=== PATIENT | male | born 1970 ===

== ENCOUNTER 2017-04-18 09:35 | Inpatient (IN) ==
[2017-04-18 10:08] LABS: ABG Base Excess -21.3 MMOL/L (-2.5-2.5); ABG HCO3 8.8 MMOL/L (20-26); ABG Oxygen Saturation 98.5 % (95-100); ABG PCO2 26.4 MM HG (35-48); ABG TCO2 7.5 MMOL/L (23-27)
[2017-04-18 10:10] LABS: ABG PH 7.071 (7.35-7.45)
[2017-04-18] MEDS ORDERED: SODIUM BICARBONATE 50 MEQ/50 ML VIAL IV STA (10:11)
[2017-04-18] MEDS ORDERED: SODIUM BICARBONATE 50 MEQ/50 ML SYRINGE IV ONE (10:14)
--- NOTE | 2017-04-18 10:16 | XRay Report ---
XR chest 1V portable Indication: SOB Comparison: Chest x-ray dated April 18, 2017 Technique: Single frontal view of the chest. Findings: Borderline heart size. Low lung volumes with bronchovascular crowding. Minimal bibasilar atelectasis. Visualized osseous and surrounding soft tissue structures appear grossly unchanged. IMPRESSION: As above. PROCEDURE INTERPRETED AT [facility] DEPARTMENT OF RADIOLOGY Final Report Signed by: Dr Kd Chang
--- NOTE | 2017-04-18 10:25 | EKG Report ---
Stationary ECG Study [facility] ER Test Date: 04/18/2017 10:23:38 AM Pat Name: CLAUDIA JADE Department: Room: Gender: M [employer]: : 1970 Requested by: Brady Carter Order Number: [id number] Reading MD: TAYO ALBERTO Intervals [place] Rate: 75 P: 73 ND: 105 QRS: 102 QRSD: 108 T: -24 QT: 426 QTc: 455 Interpretive Statements SINUS RHYTHM WITH SHORT ND INTERVAL MARKED RIGHT AXIS DEVIATION INFERIOR MYOCARDIAL INFARCTION, likely recent, WITH POSTERIOR EXTENSION Electronically Signed On 04-18-17 11:17:20 CDT by TAYO ALBERTO [id number]
--- NOTE | 2017-04-18 10:42 | Emergency Department Note ---
Joaquin Monreal Brooke, am scribing for, and in the presence of, Brady Braga MD 09:57. Omi Monreal Phillip K, MD, personally performed the services described in this documentation, ascribed by Mini Nuñez in my presence, and it is both accurate and complete . Arrival - Arrival Chief Complaint: Non-Specific ED Nursing Triage Note: pt was transfered from [facility] for abnormal labs. pt has been huffing paint for over a week Mode of Arrival: Stretcher Limitations: No Limitations Source: Patient, RN Notes Reviewed Time Seen by Provider: 04/18/17 09:44 - History of Present Illness HPI Narrative: Patient is a 46 year old male transferred from [facility] with c/o abnormal labs. His hemaglobin was 8 and the hematocrit was 24.8. His CO2 is 7.3. Patient says he has "caught a cold." He says he has a cough that started out productive but no longer is. He has been huffing paint since last Sunday. He has a history of huffing paint and has a trach that was put in five years ago. Patient has PMHx of HTN, NIDDM, anxiety, and dyslipidemia. Patient does smoke cigarettes and drink alcohol. Patient was sent here because his CPK was 565 and his MB was 18.1. His troponin was normal at [facility]. Patient denies any chest pain. Onset (ago): week(s) (1) Allergies/Adverse Reactions: Allergies Allergy/AdvReac Type Severity Reaction Status Date / Time No Known Allergies Allergy Unverified 04/18/17 09:41 Review of System - Review of System 12 point system: reviewed and no additional remarkable complaints except as stated - Review of System Constitutional: Absent: fever Respiratory: Present: cough, wheezing. Absent: respiratory distress Skin: Absent: rash Medical,Surgical,& Family Hx - Medical History Cardio: History of: Hypertension Endocrine: History of: Diabetes Mellitus (NIDDM), Dyslipidemia Respiratory: History of: Respiratory Problems (trach for huffing) - Social History Smoking Status: Smoker, status unknown Frequency of Alcohol Use: Frequently Type of Drug Use: None Exam Vital Signs: Vital Signs Temperature 98.4 F 04/18/17 09:36 Pulse Rate 90 04/18/17 09:36 Respiratory Rate 20 04/18/17 09:45 Blood Pressure 153/90 04/18/17 09:36 O2 Sat by Pulse Oximetry 98 04/18/17 09:36 - General General appearance: alert, in no apparent distress - Head Head exam: Present: atraumatic, normocephalic - Eye Eye exam: Present: normal appearance, PERRL, EOMI - ENT ENT exam: Present: normal exam - Neck Neck exam: Present: normal inspection - Chest Chest inspection: Present: normal inspection, symmetric chest wall rise - Respiratory Respiratory exam: Present: normal lung sounds bilaterally - Cardiovascular Cardiovascular exam: Present: normal rhythm, bradycardia, normal heart sounds - Abdominal Exam Abdominal exam: Present: soft, hernia (umbilical hernia that is reducable). Absent: distention, tenderness - Extremities Exam Extremities exam: Present: pedal edema (1+ bilaterallower extremity edema.) - Back Exam Back exam: Present: other (Large lipoma to the lower lumbar area.) - Neurological Exam Neurological exam: Present: alert, oriented X3 - Psychiatric Psychiatric exam: Present: normal affect, normal mood - Skin Skin exam: Present: warm, dry, intact, normal color Results - Labs Lab Results: I have reviewed the patients labs (Labs reviewed from [facility]. ABGs here showed a pH of 7.02) Labs: Laboratory Tests 04/18/17 10:02 ABG pH 7.071 L* ABG pCO2 26.4 L ABG pO2 123.0 H ABG HCO3 8.8 L ABG Total CO2 7.5 L ABG O2 Saturation 98.5 ABG Base Excess -21.3 L - EKG EKG results: interpreted by MADAY, sinus rhythm (Nonspecific ST-T changes) - Diagnostic Findings Procedure: Chest x-ray: report reviewed by me (Borderline heart size. Low lung volumes with bronchovascular crowding. Minimal bibasilar atelectasis. Visualized osseous and surrounding soft tissue structures appear grossly unchanged.) Disposition Clinical Impression: Metabolic acidosis, Toxic effect of paint, Elevated CPK, Anemia Case discussed with: patient Disposition: Still a Patient Condition: Guarded Additional Instructions: Admit to the hospitalist.
[2017-04-18] MEDS ORDERED: ONDANSETRON 4 MG/2 ML VIAL IV PRN (10:50)
[2017-04-18] MEDS ORDERED: ALBUTEROL 2.5 MG/3 ML NEB RESP TX PRN (10:50)
[2017-04-18] MEDS ORDERED: NICOTINE 21 MG/24 HR PATCH TRANSDERM PRN (10:53)
--- NOTE | 2017-04-18 11:17 | Hospitalist History & Physical ---
Assessment and Plan - Time spent with patient Time spent with patient: Greater than 30 minutes (1) Elevated creatine kinase level Status: Acute Assessment and plan: Will admit to Critical Care for close monitoring. Will repeat CPK now. Will repeat labs in a.m. Will start breathing treatments. Will start antibiotics. Current Visit: Yes History of Present Illness Chief complaint: shortness of breath History of present illness: Mr. Muñoz is a 46 year old [place] male that presented to ED as a transfer from [facility] for abnormal labs (CPK 565 and MB 18.1, troponin normal). He reports that his shortness of breath started last Sunday and has been gradually getting worse. He denies any chest pain. He verbalized chills but has not checked his temperature at home. He reports coughing up thick white sputum. He reports last time of "huffing paint" was Sunday, and he only does it occasionally. He had a trach placed 5 years ago r/t huffing paint. The trach was removed 2012. PCP: [facility]. He denies cigarette smoking. Reports occasional alcohol intake. Reports occasional huffing paint and denies any illicit drug use. LABS at [facility]: H&H 7.6 & 24.9; NA 123, K 3.9; Troponin <0.015, CK-MB 18.1; CPK 565.0; DDImer 529, BNP [address]82. After discussion with Dr Braga in the ED and Dr Clayton with Hospital Medicine, it was agreed to admit patient for further evaluation. Home medications will be reviewed and reconciliation to follow. Allergies Allergy/AdvReac Type Severity Reaction Status Date / Time No Known Allergies Allergy Unverified 04/18/17 09:41 Medical,Surgical,& Family Hx - Medical History Cardio: History of: Hypertension Endocrine: History of: Diabetes Mellitus (NIDDM), Dyslipidemia Respiratory: History of: Respiratory Problems (trach for huffing) - Social History Smoking Status: Smoker, status unknown Frequency of Alcohol Use: Frequently Type of Drug Use: None Review of systems: ROS completed and pertinent positives and negatives in HPI. Exam - Constitutional Vitals: Period Temp Pulse Resp BP Sys/Ballesteros Pulse Ox Last 24 Hr 98.4 F-98.4 F 90-90 18-20 153-153/90-90 98 General appearance: normal weight, no acute distress - Head Head exam: Present: normal inspection - Eye Eye exam: Present: EOMI Pupils: Present: BRYAN - ENT ENT exam: Present: other (noted trach scar (removed 2012)) - Neck Neck exam: Present: other (noted trach scar (removed 2012)) - Respiratory Respiratory exam: Present: clear to auscultation bilaterally - Cardiovascular Cardiovascular exam: Present: regular rate and rhythm - GI/Abdominal GI/Abdominal exam: Present: normal bowel sounds, soft. Absent: tenderness, rebound - Extremities Exam Extremities exam: Present: full ROM, edema (1+ bilateral lower leg edema) - Back Exam Back exam: Present: other (Lipoma to lower back (patient reports being present since 2002)) - Neurological Exam Neurological exam: Present: alert, oriented X3 - Psychiatric Psychiatric exam: Present: normal affect, normal mood, anxious (mildly; hx: anxiety disorders; ). Absent: agitated - Skin Skin exam: Present: normal color, warm, dry Results - Labs CBC & BMP: 04/18/17 10:37 Lab Results: I have reviewed the past 24 hour labs Labs: Labs from [facility] in the HPI and scanned in system.
[2017-04-18] MEDS ORDERED: LORazepam 2 MG/1 ML VIAL IV PRN (11:20)
[2017-04-18 11:25] LABS: CKMB % 3.5 %; Troponin I Only < 0.015 NG/ML (0.00-0.045)
[2017-04-18] MEDS ORDERED: GLUCAGON 1 MG VIAL IM PRN (11:26)
[2017-04-18] MEDS ORDERED: DEXTROSE 50% 25 GM/50 ML SYRINGE IV PRN (11:26)
[2017-04-18 11:29] LABS: Calcium 6.1 MG/DL (8.5-10.1); Osmolality,Calculated 273.1 MOS/KG (273-304); Potassium 4.3 MMOL/L (3.5-5.1)
[2017-04-18] MEDS: FAMOTIDINE 20 MG/2 ML VIAL IV SCH (11:51)
[2017-04-18] MEDS: ENOXAPARIN 30 MG/0.3 ML SYRINGE SUBCUT SCH (11:51)
[2017-04-18] MEDS: methylPREDNISolone SOD SUC 40 MG/1 ML VIAL IV SCH ×2 (11:52→21:38)
[2017-04-18] MEDS: cefTRIAXone 1,000 MG in SODIUM CHLORIDE 0.9% 100 ML IV SCH (11:53)
[2017-04-18] MEDS: ALBUTEROL/IPRATROPIUM 3 ML NEB RESP TX SCH ×2 (12:09→19:30)
[2017-04-18] MEDS: DEXTROSE 5% IV SCH ×2 (12:29→20:51)
[2017-04-18] MEDS: NACL 0.9% IV SCH ×2 (12:29→20:51)
[2017-04-18] MEDS: SODIUM ACETATE IV SCH ×2 (12:29→20:51)
[2017-04-18 12:32] LABS: Barbiturates Screen,Urine Negative (Negative); Benzodiazepines Screen,Urine Negative (Negative); Cannabinoid Screen,Urine Negative (Negative); Opiate Screen,Urine Negative (Negative); Phencyclidine Screen,Urine Negative (Negative)
[2017-04-18 12:35] LABS: Amorphous Crystals,Urine Occasional /HPF (Few); Apearance,Urine CLOUDY (Clear); Bilirubin,Urine Negative (Negative); Blood, Urine Moderate mg/dL (Negative); Glucose,Urine (UA) 50 mg/dL (Negative); Ketones,Urine Negative (Negative); Nitrite,Urine Negative (Negative); Protein,Urine 100 MG/DL; RBC,Urine 11 /HPF (0-4); Urine Color Yellow (Yellow); Urine Specific Gravity 1.006 (1.001-1.035); Urine Urobilinogen < 2.0 EU/DL (0.2-1.0)
[2017-04-18] MEDS: INSULIN LISPRO 100 UNIT/ML SUBCUT SCH ×3 (12:42→21:30)
--- NOTE | 2017-04-18 12:56 | Nephrology Consult Note ---
History of Present Illness Chief complaint: Renal failure, inhalant abuse History of present illness: Mr. Muñoz is a 46 year old male with a history of paint inhalation who says that he last did that for week ago. He presents with "cold". He was found to have a creatinine of 7 and a pH of 7 and that metabolic derangement is being corrected. He is a diabetic. He is receiving IV fluids with sodium acetate to correct the acidosis. On physical exam he has stridor and has previously had a trach. He describes the illness that resulted in the trach as "waking up in the hospital and with a trach". He says that that admission was precipitated by paint inhalation as well. He has no significant edema. he does not have wheezing. Chest x-ray demonstrates no significant volume overload. Impression renal failure probably chronic. Etiology of the renal failure certainly can be diabetic nephropathy plus minus toluene abuse #2 metabolic acidosis due to renal failure and inhalant abuse with the RTA that it causes. # 3 diabetes mellitus Plan: Correction of the acidosis as you are doing and I agree with the volume support. We have counseled him regarding the absolute necessity of stopping the inhalant abuse. Allergies Allergy/AdvReac Type Severity Reaction Status Date / Time No Known Allergies Allergy Unverified 04/18/17 09:41 Medical,Surgical,& Family Hx - Medical History Cardio: History of: Hypertension Psychological: History of: Anxiety Disorders Neurology: History of: Migraine (triggered by strong perfumes), Seizures (in 2006) Endocrine: History of: Diabetes Mellitus (NIDDM), Dyslipidemia Respiratory: History of: Intubation, Respiratory Problems (trach for huffing) - Family History Family History: Reports;: Family Diabetes (mother) - Social History Smoking Status: Smoker, status unknown Frequency of Alcohol Use: Frequently Type of Drug Use: None Review of Systems 12 point system: reviewed and no additional remarkable complaints except as stated Exam - Vital Signs Vital signs: Period Temp Pulse Resp BP Sys/Ballesteros Pulse Ox Last 24 Hr 97.6 F-98.4 F 80-90 - 134-164/68-90 97-100 - General Appearance General appearance: well-developed, well-nourished, appears started age Neck: no JVD, no thyromegaly, no carotid bruit, supple Respiratory: no kyphosis, no scoliosis Cardiology: no murmurs, no rub, no gallops, no edema, regular rate, regular rhythm, normal S1, normal S2 Gastrointestinal: normoactive bowel sounds Integumentary: no rash, warm and dry Neurologic: no focal deficit, no asterixis, alert and oriented x3, reflexes 2+ and symmetric, gait normal, strength 5/5 Musculoskeletal: no deformities, no erythema, no cyanosis, no clubbing Psychiatric: mood/affect appropriate, cooperative Results - Labs CBC & BMP: 04/18/17 10:37 Assessment and Plan - Time spent with patient Time spent with patient: Greater than 30 minutes (1) Renal failure Status: Acute Current Visit: Yes (2) Inhalant abuse Status: Acute Current Visit: Yes (3) Metabolic acidosis Status: Acute Assessment and plan: Continue Na acetate Current Visit: Yes
[2017-04-18] MEDS: AZITHROMYCIN INJ 250 MG in SODIUM CHLORIDE 0.9% 250 ML IV SCH (13:54)
[2017-04-18 17:13] LABS: Calcium 6.4 MG/DL (8.5-10.1); Osmolality,Calculated 279.7 MOS/KG (273-304)
[2017-04-18 23:47] LABS: Osmolality,Calculated 287.2 MOS/KG (273-304); Potassium 3.8 MMOL/L (3.5-5.1)
[2017-04-19] MEDS: ALBUTEROL/IPRATROPIUM 3 ML NEB RESP TX SCH ×4 (00:53→19:27)
[2017-04-19] MEDS: INSULIN LISPRO 100 UNIT/ML SUBCUT SCH ×6 (01:45→21:45)
[2017-04-19] MEDS: DEXTROSE 5% IV SCH ×3 (04:26→18:38)
[2017-04-19] MEDS: NACL 0.9% IV SCH ×3 (04:26→18:38)
[2017-04-19] MEDS: SODIUM ACETATE IV SCH ×3 (04:26→18:38)
[2017-04-19] MEDS: ACETAMINOPHEN 325 MG TABLET PO PRN ×2 (04:48→09:45)
[2017-04-19] MEDS: methylPREDNISolone SOD SUC 40 MG/1 ML VIAL IV SCH ×3 (04:48→21:09)
[2017-04-19 05:34] LABS: Hematocrit 21.1 VOL% (42.0-52.0); Hemoglobin 7.4 GM/DL (14.0-18.0); Immature Granulocytes % 1.6 %; Lymphocytes # 0.4 10*3/uL (1.4-4.0); Lymphocytes % 6.2 % (21.2-54.2); Mean Corpuscular HGB Conc 35.1 GM/DL (32-36); Mean Corpuscular Hemoglobin 30 PG (27-34); Mean Corpuscular Volume 84.4 FL (87-102); Mean Platelet Volume 10.3 FL (9.6-12.0); Monocytes # 0.2 10*3/uL (0.11-0.8); Monocytes % 3.3 % (1.7-12.7); NRBC # 0.04 10*3/uL; Neutrophils # 5.6 10*3/uL (1.4-7.4); Neutrophils % 88.9 % (38.7-73.9); Platelet Count 132 T/CUMM (130-400); Red Cell Distribution Width 15.2 % (9.3-17.3); White Blood Count 6.3 T/CUMM (4-12)
[2017-04-19 06:08] LABS: Calcium 6.2 MG/DL (8.5-10.1); Osmolality,Calculated 285.1 MOS/KG (273-304); Potassium 3.7 MMOL/L (3.5-5.1)
[2017-04-19 06:12] LABS: Albumin 2.4 G/DL (3.4-5.0); Bilirubin,Total 1.1 MG/DL (0.2-1.0); Calcium 6.1 MG/DL (8.5-10.1); Osmolality,Calculated 285.1 MOS/KG (273-304); Potassium 3.7 MMOL/L (3.5-5.1); Total Protein 4.9 G/DL (6.4-8.3)
--- NOTE | 2017-04-19 07:37 | EKG Report ---
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
--- NOTE | 2017-04-19 08:34 | Nephrology Progress Note ---
Nephrology - PN: Subj Interval history: An metabolic acidosis related to inhalant abuse. He is conversant doing fairly well. He is not short of breath but does have some stridor related to his previous tracheostomy. Chest is clear he has no peripheral edema. His creatinine is improved now down to 6.8 but his bicarb is 11 his hematocrit is noted to be 21%. Will continue to correct his metabolic acidosis and will increase his sodium acetate. I think he will also benefit from transfusion. Exam (PN)-Nephrology - Vital Signs Vital signs: Period Temp Pulse Resp BP Sys/Ballesteros Pulse Ox Last 24 Hr 97.6 F-98.8 F 72-91 11-27 134-174/68-90 96-100 - Lab 04/19/17 04:41 04/19/17 04:41 Most recent lab results ABG pH 7.071 (7.35-7.45) L* 04/18/17 10:02 ABG pCO2 26.4 MM HG (35-48) L 04/18/17 10:02 ABG pO2 123.0 MM HG (80-95) H 04/18/17 10:02 ABG HCO3 8.8 MMOL/L (20-26) L 04/18/17 10:02 ABG O2 Saturation 98.5 % (95-100) 04/18/17 10:02 Calcium 6.1 MG/DL (8.5-10.1) L 04/19/17 04:41 Magnesium 2.0 MG/DL (1.8-2.4) 04/18/17 23:02 Assessment and Plan (1) Renal failure Status: Acute Current Visit: Yes (2) Inhalant abuse Status: Acute Current Visit: Yes (3) Metabolic acidosis Status: Acute Assessment and plan: Continue Na acetate Current Visit: Yes
[2017-04-19] MEDS ORDERED: SODIUM CHLORIDE 0.9% 250 ML IV PRN (08:40)
--- NOTE | 2017-04-19 09:04 | Hospitalist Progress Note ---
Assessment and Plan (1) Metabolic acidosis Status: Acute Assessment and plan: 1)metabolic acidosis with Suzie on CKD due to inhalant use- correcting with IV bicarb infusion, continue. continue serial BMP. Creatinine down a little bit, follow. Urine is clear. 2)DM 3)inhalant abuse- he has no plans to stop, because he says he likes the buzz. 4)elevated CPK- repeat this morning. 5)hyponatremia- correcting with IVF 6)anemia- transfusing 2U PRBC Current Visit: Yes (2) Toxic effect of paint Status: Acute Current Visit: Yes (3) Elevated creatine kinase level Status: Acute Current Visit: Yes (4) Anemia Status: Acute Current Visit: Yes (5) Renal failure Status: Acute Current Visit: Yes (6) Inhalant abuse Status: Acute Current Visit: Yes Hospitalist: Subjective Interval history: Mr Muñoz is doing well this morning. He denies pain and says he is hungry for eggs and grits. No nausea. NO diarrhea. He is not short of breath. His H&H is down with hydration and a transfusion has been ordered. His chemistries are slowly improving with bicarb infusion. Exam - Constitutional Vitals: Period Temp Pulse Resp BP Sys/Ballesteros Pulse Ox Last 24 Hr 97.6 F-98.8 F 72-91 11-27 134-174/68-90 96-100 General appearance: no acute distress, morbidly obese - Head Head exam: Present: normocephalic, atraumatic - Eye Eye exam: Present: EOMI. Absent: scleral icterus Pupils: Present: BRYAN - Respiratory Respiratory exam: Present: clear to auscultation bilaterally, stridor (chronic) . Absent: rales, rhonchi, wheezes - Cardiovascular Cardiovascular exam: Present: regular rate and rhythm - GI/Abdominal GI/Abdominal exam: Present: normal bowel sounds, soft. Absent: tenderness - Extremities Exam Extremities exam: Present: edema (1-2+ dependent) - Neurological Exam Neurological exam: Present: alert, oriented X3 - Skin Skin exam: Present: warm, dry Results - Labs CBC & BMP: 04/19/17 04:41 04/19/17 04:41 Lab Results: I have reviewed the past 24 hour labs
[2017-04-19] MEDS: CALCIUM (CARBONATE)/VITAMIN D 600 MG-400 UNIT TABLET PO SCH ×2 (09:44→21:09)
[2017-04-19] MEDS: ASPIRIN EC 81 MG TABLET PO SCH (09:44)
[2017-04-19] MEDS: CARVEDILOL 3.125 MG TABLET PO SCH ×2 (09:45→21:09)
--- NOTE | 2017-04-19 09:58 | Physician Query Form ---
CLICK EDIT DOCUMENT TO SELECT QUERY ANSWER --> OK --> SIGN Vandana Ruff RN, CCDS Certified Clinical Dip Painter W) [phone] (f) [phone] [email or web address]: Make your selection(s) from the choices in EACH section by typing an "x" and enter comments in the comment section. Please use your independent medical judgment in providing your response. This request does not imply that any particular answer is desired or expected. CLINICAL INDICATORS: (Providers should not edit this section) The medical record indicates that the patient was admitted with Metabolic Acidosis, history inhalation of patient, History of trach from inhalation, now with acute renal failure and a renal consultation was placed. ( Creatinine of 7.30# and GFR of 10#) Based on the above, could you clarify the appropriate diagnosis, if significant , that supports the above abnormalities and additional evaluation, monitoring, and/or treatment rendered: ( ) Acute renal failure with necrosis (e.g., cortical, medullary, tubular) ( ) Acute renal failure only ( ) Other, please specify: (x ) Clinically unable to determine COMMENTS:Acute on chronic renal failure PLEASE ALSO DOCUMENT RESPONSE IN PROGRESS NOTES AND/OR DISCHARGE SUMMARY Use of terms such as suspected, likely, or probable (associated with a specific diagnosis that is being evaluated, monitored, or treated as if it exists) are acceptable and can be restated in the discharge summary if not ruled out. MTDD
[2017-04-19 11:26] LABS: Osmolality,Calculated 287.2 MOS/KG (273-304); Potassium 3.8 MMOL/L (3.5-5.1)
[2017-04-19] MEDS: FAMOTIDINE 20 MG/2 ML VIAL IV SCH (11:38)
[2017-04-19] MEDS: cefTRIAXone 1,000 MG in SODIUM CHLORIDE 0.9% 100 ML IV SCH (11:40)
[2017-04-19] MEDS: ENOXAPARIN 30 MG/0.3 ML SYRINGE SUBCUT SCH (11:44)
[2017-04-19] MEDS: AZITHROMYCIN INJ 250 MG in SODIUM CHLORIDE 0.9% 250 ML IV SCH (12:23)
[2017-04-19] MEDS: MORPHINE 2 MG/1 ML SYRINGE IV PRN (13:46)
[2017-04-19 17:31] LABS: Calcium 6.1 MG/DL (8.5-10.1)
[2017-04-19] MEDS: hydrALAZINE 20 MG/1 ML VIAL IV PRN (17:45)
[2017-04-19 19:08] LABS: Hematocrit 26.3 VOL% (42.0-52.0); Hemoglobin 9.3 GM/DL (14.0-18.0)
[2017-04-19] MEDS ORDERED: CARVEDILOL 3.125 MG TABLET PO SCH (21:00)
[2017-04-19] MEDS ORDERED: CALCIUM (CARBONATE)/VITAMIN D 600 MG-400 UNIT TABLET PO SCH (21:00)
[2017-04-20] MEDS: NACL 0.9% IV SCH ×6 (00:27→16:11)
[2017-04-20] MEDS: DEXTROSE 5% IV SCH ×6 (00:27→16:11)
[2017-04-20] MEDS: SODIUM ACETATE IV SCH ×6 (00:27→16:11)
[2017-04-20] MEDS: INSULIN LISPRO 100 UNIT/ML SUBCUT SCH ×6 (00:28→21:00)
[2017-04-20] MEDS: ALBUTEROL/IPRATROPIUM 3 ML NEB RESP TX SCH ×4 (00:48→19:53)
[2017-04-20] MEDS: hydrALAZINE 20 MG/1 ML VIAL IV PRN ×2 (01:11→12:28)
[2017-04-20] MEDS: MORPHINE 2 MG/1 ML SYRINGE IV PRN (02:39)
[2017-04-20 04:06] LABS: Hematocrit 25.3 VOL% (42.0-52.0); Immature Granulocytes % 1.4 %; Immature Granulocytes Absolute 0.11 #; Lymphocytes # 0.3 10*3/uL (1.4-4.0); Lymphocytes % 3.8 % (21.2-54.2); Mean Corpuscular HGB Conc 35.6 GM/DL (32-36); Mean Corpuscular Hemoglobin 30 PG (27-34); Mean Corpuscular Volume 83.5 FL (87-102); Mean Platelet Volume 10.1 FL (9.6-12.0); Monocytes # 0.3 10*3/uL (0.11-0.8); Monocytes % 3.9 % (1.7-12.7); NRBC # 0.02 10*3/uL; Neutrophils # 7.2 10*3/uL (1.4-7.4); Neutrophils % 90.9 % (38.7-73.9); Platelet Count 156 T/CUMM (130-400); Red Blood Count 3.03 MC/CUMM (3.8-5.5); Red Cell Distribution Width 15.9 % (9.3-17.3); White Blood Count 7.9 T/CUMM (4-12)
[2017-04-20 04:37] LABS: Calcium 6.1 MG/DL (8.5-10.1); Osmolality,Calculated 299.3 MOS/KG (273-304); Potassium 3.6 MMOL/L (3.5-5.1)
[2017-04-20] MEDS: methylPREDNISolone SOD SUC 40 MG/1 ML VIAL IV SCH ×3 (04:43→23:09)
[2017-04-20 05:31] LABS: Hypochromasia 1+; Lymphocytes 4 % (20-55); Segmented Neutrophils 94 % (50-85); Total Cells Counted 100
[2017-04-20 05:32] LABS: Microcytosis 1+; Platelet Estimate Adequate
[2017-04-20] MEDS: CALCIUM (CARBONATE)/VITAMIN D 600 MG-400 UNIT TABLET PO SCH ×2 (08:46→20:59)
[2017-04-20] MEDS: ASPIRIN EC 81 MG TABLET PO SCH (08:47)
[2017-04-20] MEDS: CARVEDILOL 3.125 MG TABLET PO SCH (08:47)
[2017-04-20] MEDS ORDERED: ASPIRIN EC 81 MG TABLET PO SCH (09:00)
--- NOTE | 2017-04-20 09:35 | XRay Report ---
XR chest 1V portable Indication: Shortness of breath Comparison: 18 April 2017 Findings: The heart and mediastinum are normal in size and configuration. The pulmonary vascularity is normal in caliber. There is hazy increased right lower lung density. No other lung infiltrates, effusions, pneumothorax or other abnormality is demonstrated. Impression: Hazy increased right lower lung density, could indicate pneumonia or atelectasis. PROCEDURE INTERPRETED AT [facility] DEPARTMENT OF RADIOLOGY Final Report Signed by: Dr. Adrián Buitrago
[2017-04-20] MEDS ORDERED: SODIUM BICARBONATE 50 MEQ/50 ML VIAL IV ONE (09:59)
[2017-04-20] MEDS ORDERED: FUROSEMIDE 40 MG/4 ML VIAL IV ONE (10:00)
--- NOTE | 2017-04-20 10:02 | Nephrology Progress Note ---
Nephrology - PN: Subj Interval history: Mr. bermeo is seen in follow-up of his acute superimposed on chronic renal failure with a history of an Delilah abuse and diabetes mellitus. He is without complaint and tolerated 2 units of packed red cells well yesterday and now has a hematocrit of 25. His measured bicarbonate is 14 this morning and creatinine is down to 6.6. He is not short of breath and his chest is clear he has no peripheral edema but his chest x-ray is beginning to look a little wet and because of that we will decrease his IV fluid rate from 125/h 75 cc. We will give 1 amp of sodium bicarb IV and we will begin maintenance sodium bicarb by mouth 1300 mg 3 times daily. Certainly he will have some significant chronic renal failure but he is improved and in no distress. I agree that he is ready to be managed out of the intensive care unit. Exam (PN)-Nephrology - Vital Signs Vital signs: Period Temp Pulse Resp BP Sys/Ballesteros Pulse Ox Last 24 Hr 97.4 F-99.1 F 71-99 10-25 137-204/72-121 94-100 - Lab 04/20/17 03:59 04/20/17 03:59 Most recent lab results ABG pH 7.071 (7.35-7.45) L* 04/18/17 10:02 ABG pCO2 26.4 MM HG (35-48) L 04/18/17 10:02 ABG pO2 123.0 MM HG (80-95) H 04/18/17 10:02 ABG HCO3 8.8 MMOL/L (20-26) L 04/18/17 10:02 ABG O2 Saturation 98.5 % (95-100) 04/18/17 10:02 Calcium 6.1 MG/DL (8.5-10.1) L 04/20/17 03:59 Magnesium 2.0 MG/DL (1.8-2.4) 04/18/17 23:02 Assessment and Plan (1) Renal failure Status: Acute Current Visit: Yes (2) Inhalant abuse Status: Acute Current Visit: Yes (3) Metabolic acidosis Status: Acute Assessment and plan: Continue Na acetate Current Visit: Yes
[2017-04-20] MEDS ORDERED: SODIUM ACETATE IV ONE (10:30)
[2017-04-20] MEDS ORDERED: SODIUM CHLORIDE 0.9% IV ONE (10:30)
[2017-04-20] MEDS: cefTRIAXone 1,000 MG in SODIUM CHLORIDE 0.9% 100 ML IV SCH (11:35)
[2017-04-20] MEDS ORDERED: PNEUMOCOCCAL VACCINE (13 VALENT) 0.5 ML SYRINGE IM ONE (11:36)
[2017-04-20] MEDS: ENOXAPARIN 30 MG/0.3 ML SYRINGE SUBCUT SCH (11:37)
[2017-04-20] MEDS: FAMOTIDINE 20 MG/2 ML VIAL IV SCH (11:37)
[2017-04-20] MEDS: AZITHROMYCIN INJ 250 MG in SODIUM CHLORIDE 0.9% 250 ML IV SCH (11:41)
[2017-04-20] MEDS: hydrALAZINE 25 MG TABLET PO SCH ×3 (13:26→20:59)
--- NOTE | 2017-04-20 13:33 | Hospitalist Progress Note ---
Assessment and Plan (1) Metabolic acidosis Status: Acute Assessment and plan: 1)metabolic acidosis with KIESHA on CKD due to inhalant use- correcting with IV bicarb infusion, continue. continue serial BMP. Creatinine down a little bit, follow. Urine is clear. Will need continued bicarb. Dr Zhang following. Creatinine is slow to come down, UOP is increasing. 2)DM 3)inhalant abuse- he has no plans to stop, because he says he likes the buzz. 4)elevated CPK- repeat. 5)hyponatremia- corrected 6)anemia- transfused 2U PRBC- with appropriate increase in H&H. Current Visit: Yes (2) Toxic effect of paint Status: Acute Current Visit: Yes (3) Elevated creatine kinase level Status: Acute Current Visit: Yes (4) Anemia Status: Acute Current Visit: Yes (5) Renal failure Status: Acute Current Visit: Yes (6) Inhalant abuse Status: Acute Current Visit: Yes Hospitalist: Subjective Interval history: Mr Muñoz is feeling good today. He is eating without nausea and denies shortness of breath or pain. He has been stable hemodynamically but is hypertension. Exam - Constitutional Vitals: Period Temp Pulse Resp BP Sys/Ballesteros Pulse Ox Last 24 Hr 97.4 F-99.1 F 71-102 10-25 137-204/66-121 95-100 General appearance: no acute distress, morbidly obese - Head Head exam: Present: normocephalic, atraumatic - Eye Eye exam: Present: EOMI. Absent: scleral icterus - Respiratory Respiratory exam: Present: clear to auscultation bilaterally - Cardiovascular Cardiovascular exam: Present: regular rate and rhythm - GI/Abdominal GI/Abdominal exam: Present: normal bowel sounds, soft. Absent: tenderness - Extremities Exam Extremities exam: Present: edema (2+) - Neurological Exam Neurological exam: Present: alert, oriented X3 - Skin Skin exam: Present: warm, dry Results - Labs CBC & BMP: 04/20/17 03:59 04/20/17 03:59 Lab Results: I have reviewed the past 24 hour labs
[2017-04-20] MEDS: CARVEDILOL 25 MG TABLET PO SCH (16:11)
[2017-04-20] MEDS: SODIUM BICARBONATE 650 MG TABLET PO SCH ×2 (16:11→20:59)
[2017-04-20] MEDS ORDERED: CARVEDILOL 6.25 MG TABLET PO SCH (17:00)
[2017-04-21] MEDS: INSULIN LISPRO 100 UNIT/ML SUBCUT SCH ×6 (00:12→22:13)
[2017-04-21] MEDS: ALBUTEROL/IPRATROPIUM 3 ML NEB RESP TX SCH ×4 (00:50→20:47)
[2017-04-21] MEDS: DEXTROSE 5% IV SCH ×2 (02:26→17:19)
[2017-04-21] MEDS: SODIUM ACETATE IV SCH ×2 (02:26→17:19)
[2017-04-21] MEDS: NACL 0.9% IV SCH ×2 (02:26→17:19)
[2017-04-21 02:53] LABS: Calcium 6.2 MG/DL (8.5-10.1); Osmolality,Calculated 310.7 MOS/KG (273-304); Potassium 3.6 MMOL/L (3.5-5.1)
[2017-04-21] MEDS: SODIUM BICARBONATE 650 MG TABLET PO SCH ×3 (08:32→22:15)
[2017-04-21] MEDS: FAMOTIDINE 20 MG/2 ML VIAL IV SCH ×2 (08:32→12:19)
[2017-04-21] MEDS: CALCIUM (CARBONATE)/VITAMIN D 600 MG-400 UNIT TABLET PO SCH ×2 (08:33→22:15)
[2017-04-21] MEDS: CARVEDILOL 25 MG TABLET PO SCH ×2 (08:33→17:23)
[2017-04-21] MEDS: ASPIRIN EC 81 MG TABLET PO SCH (08:33)
[2017-04-21] MEDS: hydrALAZINE 25 MG TABLET PO SCH ×4 (08:38→22:15)
--- NOTE | 2017-04-21 09:14 | Hospitalist Progress Note ---
Assessment and Plan - Time spent with patient Time spent with patient: Less than 30 minutes (1) Acute kidney injury superimposed on chronic kidney disease Status: Acute Assessment and plan: Creatinine is 6.7 today. Continuing IV fluids and awaiting further recommendations from nephrology. Current Visit: Yes (2) Anemia Status: Chronic Assessment and plan: He is status post transfusion of 2 packed red blood cells and is otherwise asymptomatic at this time. Continue to follow. Current Visit: Yes (3) Inhalant abuse Status: Chronic Assessment and plan: Patient has history of inhalant abuse and states that he has no plans to stop. Continue discussions in regards to cessation. Current Visit: Yes (4) Diabetes mellitus Status: Acute Assessment and plan: Blood sugar fairly well-controlled at this time. Continue current medical regimen. Current Visit: Yes Hospitalist: Subjective Interval history: Chart has been reviewed and patient examined. 46-year-old male who had metabolic acidosis with acute kidney injury on chronic kidney disease secondary to inhalant use. He is now having no complaints stating he is tolerating his diet. He has minimal shortness of breath. He has been followed by nephrology. Exam - Constitutional Vitals: Period Temp Pulse Resp BP Sys/Balelsteros Pulse Ox Last 24 Hr 97.9 F-98.5 F 78-102 12-22 132-190/65-93 93-100 General appearance: no acute distress - Head Head exam: Present: normocephalic, atraumatic - Eye Eye exam: Present: EOMI Pupils: Present: BRYAN - ENT ENT exam: Present: normal exam - Neck Neck exam: Present: normal inspection. Absent: lymphadenopathy, meningismus, tenderness - Respiratory Respiratory exam: Present: clear to auscultation bilaterally - Cardiovascular Cardiovascular exam: Present: regular rate and rhythm. Absent: systolic murmur , tachycardia - GI/Abdominal GI/Abdominal exam: Present: normal bowel sounds, soft. Absent: mass, tenderness , rebound - Extremities Exam Extremities exam: Absent: calf tenderness, edema - Back Exam Back exam: Present: normal inspection - Neurological Exam Neurological exam: Present: alert, oriented X3, CN II-XII intact. Absent: motor sensory deficit - Psychiatric Psychiatric exam: Present: normal affect, normal mood. Absent: agitated, anxious - Skin Skin exam: Present: warm, dry. Absent: rash Results - Labs CBC & BMP: 04/20/17 03:59 04/21/17 01:51 Lab Results: I have reviewed the past 24 hour labs
[2017-04-21] MEDS: methylPREDNISolone SOD SUC 40 MG/1 ML VIAL IV SCH ×2 (10:02→22:18)
[2017-04-21] MEDS: ENOXAPARIN 30 MG/0.3 ML SYRINGE SUBCUT SCH (11:47)
--- NOTE | 2017-04-21 13:20 | Nephrology Progress Note ---
Nephrology - PN: Subj Interval history: Patient is resting comfortably. No acute changes. Serum creatinine is noted to be 6.7. Serum potassium is stable at 3.6. Repeat BMP in a.m. Exam (PN)-Nephrology - Vital Signs Vital signs: Period Temp Pulse Resp BP Sys/Ballesteros Pulse Ox Last 24 Hr 97.9 F-98.5 F 78-91 16-22 132-155/65-86 93-100 - General Appearance General appearance: well-developed, well-nourished EENT: ATNC Neck: supple Respiratory: clear Cardiology: regular rate, regular rhythm Gastrointestinal: normoactive bowel sounds Neurologic: alert and oriented x3 Musculoskeletal: no clubbing Psychiatric: mood/affect appropriate - Lab 04/20/17 03:59 04/21/17 01:51 Most recent lab results ABG pH 7.071 (7.35-7.45) L* 04/18/17 10:02 ABG pCO2 26.4 MM HG (35-48) L 04/18/17 10:02 ABG pO2 123.0 MM HG (80-95) H 04/18/17 10:02 ABG HCO3 8.8 MMOL/L (20-26) L 04/18/17 10:02 ABG O2 Saturation 98.5 % (95-100) 04/18/17 10:02 Calcium 6.2 MG/DL (8.5-10.1) L 04/21/17 01:51 Magnesium 2.0 MG/DL (1.8-2.4) 04/18/17 23:02 Assessment and Plan (1) Metabolic acidosis Status: Chronic Current Visit: Yes (2) Renal failure Status: Acute Assessment and plan: BMP in a.m. Watching for renal recovery. Current Visit: Yes Qualifiers: Chronic kidney disease stage: stage 5, not on chronic dialysis (3) Diabetes mellitus Status: Chronic Current Visit: Yes Qualifiers: Diabetes mellitus type: type 2 (4) Acute kidney injury superimposed on chronic kidney disease Status: Acute Assessment and plan: BMP in a.m. Avoid nephrotoxic agents. No NSAID medications. Current Visit: Yes
[2017-04-21] MEDS: AZITHROMYCIN INJ 250 MG in SODIUM CHLORIDE 0.9% 250 ML IV SCH (14:26)
[2017-04-21] MEDS: LACTULOSE 20 GM/30 ML UDCUP PO PRN (17:22)
[2017-04-22] MEDS: ALBUTEROL/IPRATROPIUM 3 ML NEB RESP TX SCH ×4 (00:50→20:23)
[2017-04-22] MEDS: INSULIN LISPRO 100 UNIT/ML SUBCUT SCH ×6 (01:38→20:41)
[2017-04-22] MEDS: NACL 0.9% IV SCH ×3 (04:59→20:48)
[2017-04-22] MEDS: DEXTROSE 5% IV SCH ×3 (04:59→20:48)
[2017-04-22] MEDS: SODIUM ACETATE IV SCH ×3 (04:59→20:48)
[2017-04-22 07:03] LABS: Calcium 6.6 MG/DL (8.5-10.1); Magnesium 1.8 MG/DL (1.8-2.4); Osmolality,Calculated 312.7 MOS/KG (273-304); Potassium 3.7 MMOL/L (3.5-5.1)
--- NOTE | 2017-04-22 07:17 | Hospitalist Progress Note ---
Assessment and Plan - Time spent with patient Time spent with patient: Less than 30 minutes (1) Acute kidney injury superimposed on chronic kidney disease Status: Acute Assessment and plan: Creatinine is 6.7 today. Continuing IV fluids and awaiting further recommendations from nephrology. 04/22/17: Creatinine slightly improved at 6.6 today. Continuing IV fluids and awaiting further decisions from nephrology. Current Visit: Yes (2) Anemia Status: Chronic Assessment and plan: He is status post transfusion of 2 packed red blood cells and is otherwise asymptomatic at this time. Continue to follow. 04/22/17: H&H remained stable at this time. Continue to follow. Current Visit: Yes (3) Inhalant abuse Status: Chronic Assessment and plan: Patient has history of inhalant abuse and states that he has no plans to stop. Continue discussions in regards to cessation. Current Visit: Yes (4) Diabetes mellitus Status: Chronic Assessment and plan: Blood sugar fairly well-controlled at this time. Continue current medical regimen. 04/22/17: Blood sugars continue to be under fair control. Continue current regimen and will taper steroids. Current Visit: Yes Qualifiers: Diabetes mellitus type: type 2 (5) UTI (urinary tract infection) Status: Acute Assessment and plan: Currently receiving IV Ancef for staph aureus UTI. Current Visit: Yes Hospitalist: Subjective Interval history: Patient in bed reading the newspaper and having no new complaints. He denies any chest pain, shortness breath, nausea, vomiting. He is tolerating his diet well. Exam - Constitutional Vitals: Period Temp Pulse Resp BP Sys/Ballesteros Pulse Ox Last 24 Hr 97.9 F-99.9 F 65-86 16-22 140-155/69-86 93-99 General appearance: no acute distress - Head Head exam: Present: normocephalic, atraumatic - Eye Eye exam: Present: EOMI Pupils: Present: BRYAN - ENT ENT exam: Present: normal exam - Neck Neck exam: Present: normal inspection - Respiratory Respiratory exam: Present: clear to auscultation bilaterally - Cardiovascular Cardiovascular exam: Present: regular rate and rhythm - GI/Abdominal GI/Abdominal exam: Present: normal bowel sounds, soft. Absent: mass, tenderness , rebound - Extremities Exam Extremities exam: Absent: calf tenderness, edema - Back Exam Back exam: Present: normal inspection - Neurological Exam Neurological exam: Present: alert, oriented X3, CN II-XII intact. Absent: motor sensory deficit - Psychiatric Psychiatric exam: Present: normal affect, normal mood. Absent: agitated, anxious - Skin Skin exam: Present: warm, dry. Absent: erythema Results - Labs CBC & BMP: 04/20/17 03:59 04/22/17 05:49 Lab Results: I have reviewed the past 24 hour labs
[2017-04-22] MEDS: SODIUM BICARBONATE 650 MG TABLET PO SCH ×3 (09:06→20:42)
[2017-04-22] MEDS: CALCIUM (CARBONATE)/VITAMIN D 600 MG-400 UNIT TABLET PO SCH ×2 (09:07→20:43)
[2017-04-22] MEDS: ASPIRIN EC 81 MG TABLET PO SCH (09:07)
[2017-04-22] MEDS: CARVEDILOL 25 MG TABLET PO SCH ×2 (09:08→16:42)
[2017-04-22] MEDS: LACTULOSE 20 GM/30 ML UDCUP PO PRN (09:08)
[2017-04-22] MEDS: hydrALAZINE 25 MG TABLET PO SCH ×4 (09:08→20:43)
[2017-04-22] MEDS: FAMOTIDINE 20 MG TABLET PO SCH ×2 (09:08→20:43)
[2017-04-22] MEDS: predniSONE 20 MG TABLET PO SCH ×2 (09:08→20:42)
[2017-04-22] MEDS: ENOXAPARIN 30 MG/0.3 ML SYRINGE SUBCUT SCH (13:03)
--- NOTE | 2017-04-22 14:27 | Nephrology Progress Note ---
Nephrology - PN: Subj Interval history: Patient is resting comfortably. No acute changes. Serum creatinine is noted to be 6.7. Serum potassium is stable at 3.6. Repeat BMP in a.m. 04/22 the patient is resting comfortably. Serum creatinine is the same at 6.6. No shortness of breath or chest pain. No fevers or chills. Watch for renal recovery. Exam (PN)-Nephrology - Vital Signs Vital signs: Period Temp Pulse Resp BP Sys/Ballesteros Pulse Ox Last 24 Hr 97.9 F-99.9 F 64-79 16-22 140-160/69-80 93-99 - General Appearance General appearance: well-developed, well-nourished EENT: ATNC Neck: supple Respiratory: clear Cardiology: no edema, regular rate, regular rhythm Gastrointestinal: normoactive bowel sounds, no tenderness Neurologic: alert and oriented x3 Musculoskeletal: no clubbing Psychiatric: mood/affect appropriate, cooperative - Lab 04/20/17 03:59 04/22/17 05:49 Most recent lab results ABG pH 7.071 (7.35-7.45) L* 04/18/17 10:02 ABG pCO2 26.4 MM HG (35-48) L 04/18/17 10:02 ABG pO2 123.0 MM HG (80-95) H 04/18/17 10:02 ABG HCO3 8.8 MMOL/L (20-26) L 04/18/17 10:02 ABG O2 Saturation 98.5 % (95-100) 04/18/17 10:02 Calcium 6.6 MG/DL (8.5-10.1) L 04/22/17 05:49 Magnesium 1.8 MG/DL (1.8-2.4) 04/22/17 05:49 Assessment and Plan (1) Metabolic acidosis Status: Chronic Current Visit: Yes (2) Renal failure Status: Acute Assessment and plan: BMP in a.m. Watching for renal recovery. Current Visit: Yes Qualifiers: Chronic kidney disease stage: stage 5, not on chronic dialysis (3) Diabetes mellitus Status: Chronic Current Visit: Yes Qualifiers: Diabetes mellitus type: type 2 (4) Acute kidney injury superimposed on chronic kidney disease Status: Acute Assessment and plan: BMP in a.m. Avoid nephrotoxic agents. No NSAID medications. Current Visit: Yes
[2017-04-22] MEDS: ACETAMINOPHEN 325 MG TABLET PO PRN (16:22)
[2017-04-23] MEDS: INSULIN LISPRO 100 UNIT/ML SUBCUT SCH ×6 (00:28→21:07)
[2017-04-23] MEDS: ALBUTEROL/IPRATROPIUM 3 ML NEB RESP TX SCH ×4 (00:38→19:35)
[2017-04-23] MEDS: hydrALAZINE 25 MG TABLET PO SCH ×4 (08:05→21:07)
[2017-04-23] MEDS: ASPIRIN EC 81 MG TABLET PO SCH (08:05)
[2017-04-23] MEDS: FAMOTIDINE 20 MG TABLET PO SCH ×2 (08:05→21:07)
[2017-04-23] MEDS: SODIUM BICARBONATE 650 MG TABLET PO SCH ×3 (08:05→21:07)
[2017-04-23] MEDS: CARVEDILOL 25 MG TABLET PO SCH ×2 (08:05→16:12)
[2017-04-23] MEDS: predniSONE 20 MG TABLET PO SCH ×2 (08:06→21:08)
[2017-04-23] MEDS: CALCIUM (CARBONATE)/VITAMIN D 600 MG-400 UNIT TABLET PO SCH ×2 (08:06→21:07)
--- NOTE | 2017-04-23 09:44 | Hospitalist Progress Note ---
Assessment and Plan - Time spent with patient Time spent with patient: Greater than 30 minutes (1) Metabolic acidosis Status: Acute Assessment and plan: Patient with a metabolic acidosis secondary to renal tubular acidosis likely secondary to acute on chronic kidney disease and the use and abuse of inhalants. He is receiving bicarbonate drip. Nephrology is following. Creatinine is stable and without significant change Current Visit: Yes (2) Toxic effect of paint Status: Acute Current Visit: Yes Qualifiers: Encounter type: initial encounter (3) Elevated creatine kinase level Status: Acute Current Visit: Yes (4) Anemia Status: Chronic Current Visit: Yes Qualifiers: Anemia type: due to chronic kidney disease Chronic kidney disease stage: stage 3 (moderate) Qualified Code(s): N18.3 - Chronic kidney disease, stage 3 (moderate); D63.1 - Anemia in chronic kidney disease (5) Inhalant abuse Status: Chronic Current Visit: Yes (6) Diabetes mellitus Status: Chronic Current Visit: Yes Qualifiers: Diabetes mellitus type: type 2 Diabetes mellitus complication status: with kidney complications Diabetes mellitus snf insulin use: with intermediate teacher use Chronic kidney disease stage: stage 3 (moderate) (7) Acute kidney injury superimposed on chronic kidney disease Status: Acute Assessment and plan: Nephrology following. Continue bicarbonate drip. Watch for renal improvement. Repeat labs in a.m. Patient making urine with no indications for dialysis at this time. Presumptive renal tubular acidosis and acute kidney injuries secondary to inhalant abuse. Current Visit: Yes (8) UTI (urinary tract infection) Status: Acute Assessment and plan: Greater than 100,000 colonies of staph aureus. Sensitive to cefazolin. Continue Ancef. Current Visit: Yes Qualifiers: Urinary tract infection type: acute cystitis Hematuria presence: without hematuria Qualified Code(s): N30.00 - Acute cystitis without hematuria Hospitalist: Subjective Interval history: Patient seen and examined. No acute events overnight. Case discussed with nursing staff. Labs reviewed. Denies any significant complaints Exam - Constitutional Vitals: Period Temp Pulse Resp BP Sys/Ballesteros Pulse Ox Last 24 Hr 97.3 F-98.6 F 60-76 16-20 123-161/71-93 94-99 Exam: Constitutional System: No distress. No tremulousness. Morbidly obese. Head: Normocephalic, atraumatic. Ears, Nose and Throat System: No pain or tenderness. No epistaxis or discharge Eyes System: Pupils equal, round, and reactive. Extraocular muscles intact. Neck: Supple, without adenopathy, No jugular venous distention. No thyromegaly, neck mass, or prior surgery apparent. Respiratory System: Chest clear to auscultation. Cardiovascular System: Heart with regular rate and rhythm. No murmur. GI System: Abdomen soft, nontender. Normo active bowel sounds present. Musculoskeletal System: limbs with no pedal edema. Full distal pulses. Neurological System: No discernable sensory deficit. No aphasia Psychiatric System: Conversation is rational Results - Labs CBC & BMP: 04/20/17 03:59 04/22/17 05:49 Lab Results: I have reviewed the past 24 hour labs
[2017-04-23] MEDS: ACETAMINOPHEN 325 MG TABLET PO PRN ×2 (10:04→23:07)
[2017-04-23] MEDS: ENOXAPARIN 30 MG/0.3 ML SYRINGE SUBCUT SCH (12:15)
[2017-04-23] MEDS: NACL 0.9% IV SCH (12:25)
[2017-04-23] MEDS: SODIUM ACETATE IV SCH (12:25)
[2017-04-23] MEDS: DEXTROSE 5% IV SCH (12:25)
--- NOTE | 2017-04-23 18:43 | Nephrology Progress Note ---
Nephrology - PN: Subj Interval history: Mr. bermeo is seen in follow-up of his renal failure. He is improved overall and is now on a regular floor his creatinine stable at 6.6 and his acidosis is improved with a bicarb of 19. I think he is about ready to go home and could be discharged to take his sodium bicarb hopefully he will be compliant with that. We reiterated the importance of stopping use of the recreational paint huffing. We can follow him in our clinic in 2-4 weeks with a basic metabolic profile. Exam (PN)-Nephrology - Vital Signs Vital signs: Period Temp Pulse Resp BP Sys/Ballesteros Pulse Ox Last 24 Hr 96.8 F-97.5 F 59-76 18-20 123-161/71-93 94-99 - Lab 04/20/17 03:59 04/22/17 05:49 Most recent lab results ABG pH 7.071 (7.35-7.45) L* 04/18/17 10:02 ABG pCO2 26.4 MM HG (35-48) L 04/18/17 10:02 ABG pO2 123.0 MM HG (80-95) H 04/18/17 10:02 ABG HCO3 8.8 MMOL/L (20-26) L 04/18/17 10:02 ABG O2 Saturation 98.5 % (95-100) 04/18/17 10:02 Calcium 6.6 MG/DL (8.5-10.1) L 04/22/17 05:49 Magnesium 1.8 MG/DL (1.8-2.4) 04/22/17 05:49 Assessment and Plan (1) Renal failure Status: Acute Current Visit: Yes Qualifiers: Chronic kidney disease stage: stage 5, not on chronic dialysis (2) Inhalant abuse Status: Chronic Current Visit: Yes (3) Metabolic acidosis Status: Acute Assessment and plan: Continue Na acetate Current Visit: Yes
[2017-04-24] MEDS: INSULIN LISPRO 100 UNIT/ML SUBCUT SCH ×6 (00:22→21:12)
[2017-04-24] MEDS: ALBUTEROL/IPRATROPIUM 3 ML NEB RESP TX SCH ×4 (00:30→19:20)
[2017-04-24] MEDS: SODIUM ACETATE IV SCH (05:21)
[2017-04-24] MEDS: NACL 0.9% IV SCH (05:21)
[2017-04-24] MEDS: DEXTROSE 5% IV SCH (05:21)
[2017-04-24 07:30] LABS: Basophils % 0.1 % (0.0-0.8); Hematocrit 27.4 VOL% (42.0-52.0); Hemoglobin 9.4 GM/DL (14.0-18.0); Immature Granulocytes % 2.2 %; Immature Granulocytes Absolute 0.19 #; Lymphocytes # 0.5 10*3/uL (1.4-4.0); Lymphocytes % 5.4 % (21.2-54.2); Mean Corpuscular HGB Conc 34.3 GM/DL (32-36); Mean Corpuscular Hemoglobin 29 PG (27-34); Mean Corpuscular Volume 85.6 FL (87-102); Mean Platelet Volume 10.5 FL (9.6-12.0); Monocytes # 0.5 10*3/uL (0.11-0.8); Monocytes % 6.1 % (1.7-12.7); NRBC # 0.03 10*3/uL; Neutrophils # 7.6 10*3/uL (1.4-7.4); Neutrophils % 86.2 % (38.7-73.9); Platelet Count 181 T/CUMM (130-400); Red Cell Distribution Width 16.3 % (9.3-17.3); White Blood Count 8.8 T/CUMM (4-12)
[2017-04-24 07:59] LABS: Magnesium 1.7 MG/DL (1.8-2.4); Osmolality,Calculated 319.6 MOS/KG (273-304); Potassium 3.7 MMOL/L (3.5-5.1)
--- NOTE | 2017-04-24 08:38 | Nephrology Progress Note ---
Nephrology - PN: Subj Interval history: Mr. bermeo is seen in follow-up of his chronic renal failure and metabolic acidosis. His acidosis is resolved now with a bicarb of 22. His chest is clear and he is eating and is in no distress. I think he can go home and we can see him in our office in 2-4 weeks with lab. We have tried to impress upon him the need for follow-up for his chronic renal failure and the absolute necessity of stopping his inhalant abuse. Exam (PN)-Nephrology - Vital Signs Vital signs: Period Temp Pulse Resp BP Sys/Ballesteros Pulse Ox Last 24 Hr 96.8 F-97.7 F 59-70 17-20 130-159/66-91 94-99 - Lab 04/24/17 06:21 04/24/17 06:21 Most recent lab results ABG pH 7.071 (7.35-7.45) L* 04/18/17 10:02 ABG pCO2 26.4 MM HG (35-48) L 04/18/17 10:02 ABG pO2 123.0 MM HG (80-95) H 04/18/17 10:02 ABG HCO3 8.8 MMOL/L (20-26) L 04/18/17 10:02 ABG O2 Saturation 98.5 % (95-100) 04/18/17 10:02 Calcium 7.0 MG/DL (8.5-10.1) L 04/24/17 06:21 Magnesium 1.7 MG/DL (1.8-2.4) L 04/24/17 06:21 Assessment and Plan (1) Renal failure Status: Acute Current Visit: Yes Qualifiers: Chronic kidney disease stage: stage 5, not on chronic dialysis (2) Inhalant abuse Status: Chronic Current Visit: Yes (3) Metabolic acidosis Status: Acute Assessment and plan: Continue Na acetate Current Visit: Yes
[2017-04-24] MEDS: SODIUM BICARBONATE 650 MG TABLET PO SCH ×3 (09:11→21:11)
[2017-04-24] MEDS: CARVEDILOL 25 MG TABLET PO SCH ×2 (09:12→18:09)
[2017-04-24] MEDS: hydrALAZINE 25 MG TABLET PO SCH ×4 (09:12→21:11)
[2017-04-24] MEDS: predniSONE 20 MG TABLET PO SCH ×2 (09:12→21:11)
[2017-04-24] MEDS: CALCIUM (CARBONATE)/VITAMIN D 600 MG-400 UNIT TABLET PO SCH ×2 (09:12→21:11)
[2017-04-24] MEDS: ASPIRIN EC 81 MG TABLET PO SCH (09:12)
[2017-04-24] MEDS: FAMOTIDINE 20 MG TABLET PO SCH ×2 (09:12→21:11)
[2017-04-24] MEDS: ACETAMINOPHEN 325 MG TABLET PO PRN ×2 (09:14→21:12)
--- NOTE | 2017-04-24 10:41 | Hospitalist Progress Note ---
Hospitalist: Subjective Interval history: Patient notes some scrotal swelling for the past 3 days. He states that he is not feeling well to go home. Exam - Constitutional Vitals: Period Temp Pulse Resp BP Sys/Ballesteros Pulse Ox Last 24 Hr 96.8 F-97.7 F 59-70 17-20 130-159/66-91 94-99 General appearance: morbidly obese - Head Head exam: Present: normal inspection - Eye Eye exam: Present: EOMI Pupils: Present: BRYAN - Respiratory Respiratory exam: Present: clear to auscultation bilaterally. Absent: rales, rhonchi, wheezes - Cardiovascular Cardiovascular exam: Present: regular rate and rhythm. Absent: diastolic murmur , systolic murmur - GI/Abdominal GI/Abdominal exam: Present: normal bowel sounds, soft. Absent: guarding, tenderness, rebound - Extremities Exam Extremities exam: Absent: edema - Neurological Exam Neurological exam: Present: oriented X3 - Skin Skin exam: Present: other (: significant scrotal swelling; no erythema or tenderness) Results - Labs CBC & BMP: 04/24/17 06:21 04/24/17 06:21 - Impressions 1. CKD V, being followed by nephrology 2. Metabolic acidosis; resolving; on sodium bicarbonate 3. Inhalant paint use; counselled and encouraged to stop 4. HTN: blood pressure elevated; will increase adalat to 90mg daily 5. MSSA UTI: on ancef; can transition to augmentin 6. DM: sugars fair; monitor 7. Hypomg: mild; monitor given CKD 8. Scotal swelling; continue elevation; scrotal ultrasound; may need urology consult Plan: continue current care; evaluate scrotal swelling; control blood pressure; hopefully can be discharged tomorrow.
--- NOTE | 2017-04-24 12:01 | Ultrasound Report ---
US Scrotum w Duplex Indication: Scrotal swelling. Evaluate for torsion. Ultrasound scrotum: Degroot scale and color Doppler imaging of the scrotal contents performed. Edematous skin thickening is present throughout scrotum. Right testis 28 x 20 x 22 mm. Left testis 22 x 18 x 24 mm. No mass, cyst or calcification. Normal color Doppler flow is present bilaterally. Small bilateral hydroceles are noted. Right epididymal head 4 x 9 x 7 mm. Left epididymal head 4 x 5 x 4 mm. Increased color flow to both epididymides noted. Impression: Bilateral epididymitis. Significant edema versus cellulitis of the scrotum. No testicular torsion or imaging findings to support orchitis. PROCEDURE INTERPRETED AT [facility] DEPARTMENT OF RADIOLOGY Final Report Signed by: Joseph Zepeda M.D.
[2017-04-24] MEDS: ENOXAPARIN 30 MG/0.3 ML SYRINGE SUBCUT SCH (13:05)
[2017-04-24] MEDS ORDERED: cefTRIAXone 250 MG VIAL IM ONE (17:22)
[2017-04-24] MEDS: DOXYCYCLINE HYCLATE 100 MG CAPSULE PO SCH (21:11)
[2017-04-25] MEDS: ALBUTEROL/IPRATROPIUM 3 ML NEB RESP TX SCH ×3 (00:38→13:56)
[2017-04-25] MEDS: INSULIN LISPRO 100 UNIT/ML SUBCUT SCH ×5 (00:48→15:59)
[2017-04-25 06:30] LABS: Hematocrit 26.2 VOL% (42.0-52.0); Immature Granulocytes % 2.3 %; Immature Granulocytes Absolute 0.22 #; Lymphocytes # 0.4 10*3/uL (1.4-4.0); Lymphocytes % 4.2 % (21.2-54.2); Mean Corpuscular HGB Conc 34.4 GM/DL (32-36); Mean Corpuscular Hemoglobin 29 PG (27-34); Mean Corpuscular Volume 85.3 FL (87-102); Mean Platelet Volume 9.9 FL (9.6-12.0); Monocytes # 0.6 10*3/uL (0.11-0.8); NRBC # 0.03 10*3/uL; Neutrophils # 8.6 10*3/uL (1.4-7.4); Neutrophils % 87.5 % (38.7-73.9); Platelet Count 161 T/CUMM (130-400); Red Blood Count 3.07 MC/CUMM (3.8-5.5); Red Cell Distribution Width 16.3 % (9.3-17.3); White Blood Count 9.8 T/CUMM (4-12)
[2017-04-25 06:54] LABS: Burr Cells Slight; Hypochromasia 1+; Lymphocytes 3 % (20-55); Microcytosis Slight; Nucleated Red Blood Cells 1 (0-5); Ovalocytes Slight; Platelet Estimate Normal; Segmented Neutrophils 92 % (50-85); Total Cells Counted 100
[2017-04-25 07:04] LABS: Magnesium 1.9 MG/DL (1.8-2.4); Osmolality,Calculated 317.7 MOS/KG (273-304); Potassium 3.8 MMOL/L (3.5-5.1)
--- NOTE | 2017-04-25 08:34 | Nephrology Progress Note ---
Nephrology - PN: Subj Interval history: Mr. bermeo is seen in follow-up of his chronic renal failure. He stable with corrected metabolic acidosis now with a measured bicarb of 23. He does have some modest volume overload with edema particularly of his thighs. He has no sonographic evidence of epididymal inflammation on scrotal ultrasound. He is asking about going home and I think it would be fine. I can see him in renal follow-up and 2-4 weeks with a renal profile. I have written an order to that effect. Exam (PN)-Nephrology - Vital Signs Vital signs: Period Temp Pulse Resp BP Sys/Ballesteros Pulse Ox Last 24 Hr 97.0 F-97.6 F 55-88 18-20 131-165/71-79 93-99 - Lab 04/25/17 06:23 04/25/17 06:23 Most recent lab results ABG pH 7.071 (7.35-7.45) L* 04/18/17 10:02 ABG pCO2 26.4 MM HG (35-48) L 04/18/17 10:02 ABG pO2 123.0 MM HG (80-95) H 04/18/17 10:02 ABG HCO3 8.8 MMOL/L (20-26) L 04/18/17 10:02 ABG O2 Saturation 98.5 % (95-100) 04/18/17 10:02 Calcium 7.0 MG/DL (8.5-10.1) L 04/25/17 06:23 Magnesium 1.9 MG/DL (1.8-2.4) 04/25/17 06:23 Assessment and Plan (1) Renal failure Status: Acute Current Visit: Yes Qualifiers: Chronic kidney disease stage: stage 5, not on chronic dialysis (2) Inhalant abuse Status: Chronic Current Visit: Yes (3) Metabolic acidosis Status: Acute Assessment and plan: Continue Na acetate Current Visit: Yes
[2017-04-25] MEDS: MORPHINE 2 MG/1 ML SYRINGE IV PRN (09:01)
[2017-04-25] MEDS: FAMOTIDINE 20 MG TABLET PO SCH (09:04)
[2017-04-25] MEDS: ASPIRIN EC 81 MG TABLET PO SCH (09:04)
[2017-04-25] MEDS: CARVEDILOL 25 MG TABLET PO SCH ×2 (09:04→17:48)
[2017-04-25] MEDS: hydrALAZINE 25 MG TABLET PO SCH ×3 (09:04→17:48)
[2017-04-25] MEDS: CALCIUM (CARBONATE)/VITAMIN D 600 MG-400 UNIT TABLET PO SCH (09:04)
[2017-04-25] MEDS: SODIUM BICARBONATE 650 MG TABLET PO SCH ×2 (09:04→14:22)
[2017-04-25] MEDS: predniSONE 20 MG TABLET PO SCH (09:04)
[2017-04-25] MEDS: DOXYCYCLINE HYCLATE 100 MG CAPSULE PO SCH (09:04)
--- NOTE | 2017-04-25 10:35 | Discharge Summary ---
Hospital Course - Hospital Course Hospital Course: Patient is a 46 year old male transferred from [facility] with c/o abnormal labs. His hemaglobin was 8 and the hematocrit was 24.8. His CO2 is 7.3. Patient says he has "caught a cold." He says he has a cough that started out productive but no longer is. He has been huffing paint since last Sunday. He has a history of huffing paint and has a trach that was put in five years ago. Patient has PMHx of HTN, NIDDM, anxiety, and dyslipidemia. Patient does smoke cigarettes and drink alcohol. Patient was sent here because his CPK was 565 and his MB was 18.1. His troponin was normal at [facility]. Patient denies any chest pain. On admission he was found to have BUN and creatinine of 53 and 7.3 respectively. He has no symptoms or signs of uremia. He was seen in consultation by nephrology. It was nephrology's opinion that he had acute on chronic renal failure and metabolic acidosis. He was treated with intravenous normal saline and sodium bicarbonate. Improved significantly during his hospitalization. At the time of discharge his BUN was 94, creatinine 6.5, and CO2 23. He was comfortable with no complaints. Time of discharge she was stable. There is recommended to follow-up with nephrology in 2 weeks. Diagnosis - Discharge Diagnosis (1) Metabolic acidosis Status: Acute (2) Anemia Status: Chronic (3) Inhalant abuse Status: Chronic (4) Acute kidney injury superimposed on chronic kidney disease Status: Acute (5) UTI (urinary tract infection) Status: Acute Discharge Plan - Discharge Data Condition at Discharge: Stable Discharge Diet: advance to your usual diet Activity: resume usual activities as tolerated Hygiene: no restrictions - Discharge Medications New Carvedilol [Coreg] 25 mg PO BID W/MEALS #60 tablet hydrALAZINE TAB [Apresoline Tab] 25 mg PO QID #120 tablet Doxycycline Hyclate Cap [Vibramycin Cap] 100 mg PO BID #10 capsule Continue Simvastatin [Zocor] 20 mg PO BEDTIME Carvedilol [Coreg] 3.125 mg PO BID Albuterol/Ipratropium Neb [Duoneb] 3 ml RESP TX RT Q4H PRN PRN Reason: Shortness Of Breath/Wheezing Albuterol Inhaler [Proventil Inhaler] 2 puff INH Q4H PRN PRN Reason: Shortness Of Breath/Wheezing NIFEdipine [Nifedipine ER] 60 mg PO DAILY Aspirin EC Tab 81 mg PO DAILY Discontinued Furosemide Tab [Lasix Tab] 40 mg PO BID DIURETIC No Action Calcium (Carb)/Vit D 600-400 [Caltrate 600 + D] 1 tablet PO BID - Follow Up or Referral - Forms/Instructions Exam - Constitutional Vitals: Period Temp Pulse Resp BP Sys/Ballesteros Pulse Ox Last 24 Hr 97.0 F-97.6 F 55-88 18-20 131-165/71-79 93-99 Discharge Results Labs on day of discharge: Labs from last 24 hours 04/25/17 04/25/17 04/25/17 06:23 06:23 03:49 WBC 9.8 RBC 3.07 L Hgb 9.0 L Hct 26.2 L MCV 85.3 L MCH 29 MCHC 34.4 RDW 16.3 Plt Count 161 MPV 9.9 Neut % (Auto) 87.5 H Lymph % (Auto) 4.2 L [place] % (Auto) 6.0 Eos % (Auto) 0.0 Baso % (Auto) 0.0 Neut # (Auto) 8.6 H Lymph # (Auto) 0.4 L [place] # (Auto) 0.6 Eos # (Auto) 0.0 Baso # (Auto) 0.0 Total Counted 100 Immature Gran % 2.3 Nucleated RBC % 0.3 Immature Gran # 0.22 Segmented Neutrophils 92 H Lymphocytes 3 L Monocytes 5 Nucleated RBCs 1 Nucleated RBCs # 0.03 Platelet Estimate Normal Immature Plt Fraction 0.0 Hypochromasia 1+ Microcytosis Slight Ovalocytes Slight Ericka Cells Slight Sodium 145 Potassium 3.8 Chloride 111 H Carbon Dioxide 23 Anion Gap 14.8 BUN 94 H Creatinine 6.50 H GFR Calculation 13 BUN/Creatinine Ratio 14.00 Glucose 115 H POC Glucose 125 H Calculated Osmolality 317.7 H Calcium 7.0 L Magnesium 1.9 04/25/17 04/24/17 04/24/17 00:12 19:48 16:20 WBC RBC Hgb Hct MCV MCH MCHC RDW Plt Count MPV Neut % (Auto) Lymph % (Auto) [place] % (Auto) Eos % (Auto) Baso % (Auto) Neut # (Auto) Lymph # (Auto) [place] # (Auto) Eos # (Auto) Baso # (Auto) Total Counted Immature Gran % Nucleated RBC % Immature Gran # Segmented Neutrophils Lymphocytes Monocytes Nucleated RBCs Nucleated RBCs # Platelet Estimate Immature Plt Fraction Hypochromasia Microcytosis Ovalocytes Ericka Cells Sodium Potassium Chloride Carbon Dioxide Anion Gap BUN Creatinine GFR Calculation BUN/Creatinine Ratio Glucose POC Glucose 193 H 228 H 157 H Calculated Osmolality Calcium Magnesium 04/24/17 04/24/17 12:07 07:32 WBC RBC Hgb Hct MCV MCH MCHC RDW Plt Count MPV Neut % (Auto) Lymph % (Auto) [place] % (Auto) Eos % (Auto) Baso % (Auto) Neut # (Auto) Lymph # (Auto) [place] # (Auto) Eos # (Auto) Baso # (Auto) Total Counted Immature Gran % Nucleated RBC % Immature Gran # Segmented Neutrophils Lymphocytes Monocytes Nucleated RBCs Nucleated RBCs # Platelet Estimate Immature Plt Fraction Hypochromasia Microcytosis Ovalocytes Ericka Cells Sodium Potassium Chloride Carbon Dioxide Anion Gap BUN Creatinine GFR Calculation BUN/Creatinine Ratio Glucose POC Glucose 191 H 141 H Calculated Osmolality Calcium Magnesium DS: Provider Date of admission: 04/18/17 10:37 Primary care physician: Yvonne Wylie MD Attending physician on admission: Dori Clayton MD Consults: 04/18/17 10:55 Consult to Physician [CONS] Routine Comment: renal failure, huffing, met acidosis Consulting Provider: Consult to Specialist Group: Nephrology When should Consulting Provider be notified: Now Person Notified: Dr. Zhang's nurse Date Notified: 04/18/17 Time Notified: 12:32 Consult Notification Comment: Will notify Dr. Zhang 04/18/17 13:13 Consult to Dietitian [CONS] Routine Reason for Dietitian: Supplements and/or Snacks Discharging clinician: Rory Millan
[2017-04-25] MEDS: ENOXAPARIN 30 MG/0.3 ML SYRINGE SUBCUT SCH (12:45)
[2017-04-25 13:17] VITALS: BP 167/86
[2017-04-25] MEDS: ACETAMINOPHEN 325 MG TABLET PO PRN (13:59)
== END 2017-04-25 18:30 | disposition home or self-care (01) | DRG 918 ==
LOC: EDUNIT# → N.ED 09:35 → N.EDINP 10:37 → SUATTDRO 10:37 → N.EDINP 11:05 → N.CC 11:15 → N.5E 04-20 14:19
PROVIDERS: ADMIT Internal Medicine

== ENCOUNTER 2017-05-04 09:02 | Inpatient (IN) ==
[2017-05-04] MEDS ORDERED: ACETAMINOPHEN 325 MG TABLET PO PRN ×2 (09:03)
[2017-05-04] MEDS ORDERED: ONDANSETRON 4 MG/2 ML VIAL IV PRN (09:03)
[2017-05-04] MEDS ORDERED: PROMETHAZINE 25 MG TABLET PO PRN (09:03)
[2017-05-04] MEDS ORDERED: DOCUSATE SODIUM 100 MG CAPSULE PO PRN (09:03)
[2017-05-04] MEDS ORDERED: MORPHINE 2 MG/1 ML SYRINGE IV PRN (09:03)
[2017-05-04] MEDS ORDERED: GLUCAGON 1 MG VIAL IM PRN (13:09)
[2017-05-04] MEDS ORDERED: DEXTROSE 50% 25 GM/50 ML SYRINGE IV PRN (13:09)
--- NOTE | 2017-05-04 13:14 | Hospitalist History & Physical ---
Assessment and Plan (1) Diabetic leg ulcer Status: Acute Assessment and plan: Impression: 1. Left leg ulcer 2. Type II DM 3. Hypertension 4. Chronic kidney disease, probably stage V, likely related to #2 and/or #3 Plan: Recheck lab. He will need to see surgery for possible debridement of the leg. IV antibiotics have been instituted empirically. This note was completed using [employer] voice recognition software. There may be shop teacher errors as a result. Current Visit: Yes History of Present Illness Chief complaint: Direct admit from [facility] regarding leg ulcer History of present illness: Mr. Muñoz is a 46 year old male The patient has been hypertensive and diabetic for about 14 years. Blood sugars at home are usually less than 200. He says that he noted the ulcer on his left anterior grossman about for 5 days ago. He had just been admitted to the hospital prior to that for an episode of metabolic acidosis precipitated by paint inhalation. He apparently has chronic kidney disease which is likely multifactorial. He was seen by nephrology during that admission. He has not had any fever or chills. He says that he has not taken any of his home medications. Last meal was breakfast today at about 6 AM. Home Medications Medication Instructions Recorded Confirmed Type Albuterol Inhaler [Proventil 2 puff INH Q4H PRN 04/18/17 05/04/17 History Inhaler] Albuterol/Ipratropium Neb [Duoneb] 3 ml RESP TX RT Q4H PRN 04/18/17 05/04/17 History Aspirin EC Tab 81 mg PO DAILY 04/18/17 05/04/17 History Calcium (Carb)/Vit D 600-400 1 tablet PO BID 04/18/17 05/04/17 History [Caltrate 600 + D] NIFEdipine [Nifedipine ER] 60 mg PO DAILY 04/18/17 05/04/17 History Simvastatin [Zocor] 20 mg PO BEDTIME 04/18/17 05/04/17 History Carvedilol [Coreg] 25 mg PO BID W/MEALS #60 tablet 04/25/17 05/04/17 Rx Doxycycline Hyclate Cap 100 mg PO BID #10 capsule 04/25/17 05/04/17 Rx [Vibramycin Cap] hydrALAZINE TAB [Apresoline Tab] 25 mg PO QID #120 tablet 04/25/17 05/04/17 Rx Allergies Allergy/AdvReac Type Severity Reaction Status Date / Time No Known Allergies Allergy Verified 05/04/17 11:13 Medical,Surgical,& Family Hx - Medical History Cardio: History of: Hypertension Psychological: History of: Anxiety Disorders Neurology: History of: Migraine (triggered by strong perfumes), Seizures (in 2006) Endocrine: History of: Diabetes Mellitus (NIDDM) Respiratory: History of: Intubation - Family History Family History: Reports;: Family Diabetes (mother) - Social History Smoking Status: Current some day smoker Frequency of Alcohol Use: Occasionally Type of Drug Use: None Review of systems: Gen.: No weight loss or gain over the past year. Eyes: No glaucoma or cataracts. No change in visual acuity. Ears nose and throat: No change in auditory acuity, sinus problems, nasal allergies, or sore throat. Lungs: Chronic wheezing following tracheostomy about 4 years ago. Cardiac: Not aware of any history of any heart disease. GI: No liver disease, nausea, vomiting, or diarrhea. : Chronic kidney disease documented in recent chart. Neurologic: No seizures. Endocrine: No thyroid disease. Hematologic: No blood dyscrasias. Skin: See history of present. Musculoskeletal: No significant arthritic complaints. Exam - Constitutional Vitals: Period Temp Pulse Resp BP Sys/Ballesteros Pulse Ox Last 24 Hr 98.2 F 65 16 168/85 100 Vital signs are noted above. General: He is a pleasant obese man in no distress. HEENT: Pupils are round and reactive. Extraocular muscles are normal. Gaze is conjugate. Fundi were not examined. There is no nasal discharge. Mucous membranes are moist. Neck: Supple, without mass, bruit, or venous distention. Stridor is present Cardiac: Rhythm is regular. The carotids are normal. I don't hear murmur gallop or rub. Peripheral pulses are intact. Lungs: Clear without rales, wheezes, or rubs. Abdomen: Soft and nontender. Bowel sounds are present. He has an umbilical hernia about the size of a lemon. Rectal: Not done. Extremities: Venous stasis changes in both lower extremities. The left lower extremity has a large irregular ulcer on the anterior aspect with some surrounding erythema and induration. Skin: See description of skin above. Neurologic: He is awake and alert. He moves all 4 extremities. Cranial nerves appear to be intact. No pathologic reflexes are elicited. Quality Measures - VTE Contraindication to Pharmacological VTE Prophylaxis: High Risk of Bleeding Contraindication to Mechanical VTE Prophylaxis: Local Inflammation
[2017-05-04] MEDS ORDERED: ALBUTEROL/IPRATROPIUM 3 ML NEB RESP TX PRN (14:44)
[2017-05-04] MEDS ORDERED: ALBUTEROL 2.5 MG/3 ML NEB RESP TX PRN (14:44)
[2017-05-04] MEDS: SODIUM CHLORIDE 0.9% 1,000 ML IV SCH ×2 (14:45→21:20)
[2017-05-04] MEDS: CLINDAMYCIN INJ 600 MG in PREMIX 1 EACH IV SCH ×2 (14:45→18:41)
--- NOTE | 2017-05-04 15:35 | General Surgery Consult Note ---
Assessment and Plan (1) Left leg cellulitis Status: Acute Assessment and plan: The patient needs to be on empiric antibiotic treatment, elevate his leg, and wound care. Wound care orders have been placed. I will continue to follow the patient. Current Visit: Yes History of Present Illness Chief complaint: Left lower extremity pain History of present illness: Mr. Muñoz is a 46 year old male admitted with cellulitis of his left lower leg with ulceration. Patient has been off of his medications at home. No rest pain or claudication symptoms. Afebrile. The patient was directly admitted from Center and none of the records are scanned in yet. I am unable to identify the records paper either. Home Medications Medication Instructions Recorded Confirmed Type Albuterol Inhaler [Proventil 2 puff INH Q4H PRN 04/18/17 05/04/17 History Inhaler] Albuterol/Ipratropium Neb [Duoneb] 3 ml RESP TX RT Q4H PRN 04/18/17 05/04/17 History Aspirin EC Tab 81 mg PO DAILY 04/18/17 05/04/17 History Calcium (Carb)/Vit D 600-400 1 tablet PO BID 04/18/17 05/04/17 History [Caltrate 600 + D] NIFEdipine [Nifedipine ER] 60 mg PO DAILY 04/18/17 05/04/17 History Simvastatin [Zocor] 20 mg PO BEDTIME 04/18/17 05/04/17 History Carvedilol [Coreg] 25 mg PO BID W/MEALS #60 tablet 04/25/17 05/04/17 Rx Doxycycline Hyclate Cap 100 mg PO BID #10 capsule 04/25/17 05/04/17 Rx [Vibramycin Cap] hydrALAZINE TAB [Apresoline Tab] 25 mg PO QID #120 tablet 04/25/17 05/04/17 Rx Allergies Allergy/AdvReac Type Severity Reaction Status Date / Time No Known Allergies Allergy Verified 05/04/17 11:13 Medical,Surgical,& Family Hx - Medical History Cardio: History of: Hypertension Psychological: History of: Anxiety Disorders Neurology: History of: Migraine (triggered by strong perfumes), Seizures (in 2006) Endocrine: History of: Diabetes Mellitus (NIDDM) Respiratory: History of: Intubation - Family History Family History: Reports;: Family Diabetes (mother) - Social History Smoking Status: Current some day smoker Frequency of Alcohol Use: Occasionally Type of Drug Use: None - Constitutional Constitutional: Present: as per HPI - EENT Nose, mouth and throat: Present: as per HPI - Cardiovascular Cardiovascular: Present: as per HPI - Respiratory Respiratory: Present: as per HPI - Gastrointestinal Gastrointestinal: Present: as per HPI - Genitourinary Genitourinary: Present: as per HPI - Musculoskeletal Musculoskeletal: Present: as per HPI - Neurological Neurological: Present: as per HPI - Endocrine Endocrine: Present: as per HPI Hematologic/Lymphatic: Present: as per HPI Exam - Constitutional Vitals: Period Temp Pulse Resp BP Sys/Ballesteros Pulse Ox Last 24 Hr 98.2 F 65 16 168/85 100 General appearance: no acute distress, morbidly obese - Head Head exam: Present: normal inspection, normocephalic - Eye Eye exam: Present: EOMI Pupils: Present: BRYAN - ENT ENT exam: Present: normal exam Mouth exam: Present: normal external inspection, normal voice - Neck Neck exam: Present: normal inspection, trachea midline - Respiratory Respiratory exam: Present: clear to auscultation bilaterally. Absent: accessory muscle use, chest wall tenderness - Cardiovascular Cardiovascular exam: Present: RRR. Absent: systolic murmur, tachycardia - GI/Abdominal GI/Abdominal exam: Present: soft. Absent: tenderness, rebound - Extremities Exam Extremities exam: Present: other (There is a venous stasis ulceration of the left lower leg medial malleolus extending across the anterior leg. There is some cellulitis and erythema of the leg and it is warm to the touch. There is no fluctuance or abscess that needs to be drained. There is minimal induration around the ulcer. There is no expressible drainage. It is tender.) - Back Exam Back exam: Present: normal inspection - Neurological Exam Neurological exam: Present: alert Speech: Present: normal - Skin Skin exam: Present: normal color, warm Quality Measures - VTE Contraindication to Pharmacological VTE Prophylaxis: High Risk of Bleeding Contraindication to Mechanical VTE Prophylaxis: Local Inflammation
[2017-05-04] MEDS: CALCIUM (CARBONATE)/VITAMIN D 600 MG-400 UNIT TABLET PO SCH ×2 (15:42→21:22)
[2017-05-04] MEDS: ASPIRIN EC 81 MG TABLET PO SCH (15:42)
[2017-05-04] MEDS: PANTOPRAZOLE 40 MG TABLET PO SCH (15:42)
[2017-05-04] MEDS: SODIUM HYPOCHLORITE 0.25% IRRIG 473 ML BOTTLE TOP SCH (15:43)
[2017-05-04] MEDS: CHLORHEXIDINE 4% SOLN 118 ML BOTTLE TOP SCH (15:43)
[2017-05-04] MEDS: INSULIN LISPRO 100 UNIT/ML SUBCUT SCH ×2 (17:27→21:18)
[2017-05-04] MEDS: hydrALAZINE 25 MG TABLET PO SCH ×2 (17:40→21:22)
[2017-05-04] MEDS: CARVEDILOL 25 MG TABLET PO SCH (17:40)
[2017-05-04] MEDS: SIMVASTATIN 20 MG TABLET PO SCH (21:22)
[2017-05-05] MEDS: SODIUM CHLORIDE 0.9% 1,000 ML IV SCH ×5 (01:11→19:19)
[2017-05-05] MEDS: CLINDAMYCIN INJ 600 MG in PREMIX 1 EACH IV SCH ×3 (03:08→21:20)
[2017-05-05 05:30] LABS: Basophils % 0.2 % (0.0-0.8); Eosinophils # 0.2 10*3/uL (0.0-0.87); Immature Granulocytes % 0.4 %; Immature Granulocytes Absolute 0.02 #; Lymphocytes # 1.1 10*3/uL (1.4-4.0); Lymphocytes % 20.9 % (21.2-54.2); Mean Corpuscular HGB Conc 33.2 GM/DL (32-36); Mean Corpuscular Hemoglobin 30 PG (27-34); Mean Corpuscular Volume 89.5 FL (87-102); Mean Platelet Volume 10.9 FL (9.6-12.0); Monocytes # 0.7 10*3/uL (0.11-0.8); Monocytes % 12.8 % (1.7-12.7); Neutrophils # 3.3 10*3/uL (1.4-7.4); Neutrophils % 61.7 % (38.7-73.9); Platelet Count 123 T/CUMM (130-400); Red Blood Count 2.39 MC/CUMM (3.8-5.5); Red Cell Distribution Width 14.4 % (9.3-17.3); White Blood Count 5.3 T/CUMM (4-12)
[2017-05-05 05:34] LABS: Hematocrit 21.4 VOL% (42.0-52.0); Hemoglobin 7.1 GM/DL (14.0-18.0)
[2017-05-05 05:35] LABS: Magnesium 1.5 MG/DL (1.8-2.4); Osmolality,Calculated 308.8 MOS/KG (273-304); Potassium 3.3 MMOL/L (3.5-5.1)
[2017-05-05] MEDS: INSULIN LISPRO 100 UNIT/ML SUBCUT SCH ×4 (07:39→21:22)
[2017-05-05] MEDS: CARVEDILOL 25 MG TABLET PO SCH ×3 (08:26→16:47)
[2017-05-05] MEDS: ASPIRIN EC 81 MG TABLET PO SCH (08:36)
[2017-05-05] MEDS: CALCIUM (CARBONATE)/VITAMIN D 600 MG-400 UNIT TABLET PO SCH ×2 (08:37→21:21)
[2017-05-05] MEDS: PANTOPRAZOLE 40 MG TABLET PO SCH (08:37)
[2017-05-05] MEDS: hydrALAZINE 25 MG TABLET PO SCH ×4 (10:08→21:23)
[2017-05-05] MEDS: CHLORHEXIDINE 4% SOLN 118 ML BOTTLE TOP SCH (14:33)
[2017-05-05] MEDS: SODIUM HYPOCHLORITE 0.25% IRRIG 473 ML BOTTLE TOP SCH (14:33)
--- NOTE | 2017-05-05 17:29 | Hospitalist Progress Note ---
Hospitalist: Subjective Interval history: 46-year-old with history of hypertension and diabetes was admitted with cellulitis of the left lower leg with ulceration. Exam - Constitutional Vitals: Period Temp Pulse Resp BP Sys/Ballesteros Pulse Ox Last 24 Hr 97.3 F-98.8 F 54-68 17-19 101-128/51-74 96-98 Exam: General: [No Acute Distress] HEENT: [Normocephalic, atraumatic, Extra ocular movements intact] Neck: [Supple, No JVD] Chest: [Clear to auscultation B/L] CV: [S1 + S2 audible without murmur, gallop or rub] Abd: [soft, NT, Non-distended, BS +] Ext: [venous stasis ulceration of the left lower leg medial malleolus] Skin: [No purpura, bruising or rash] Rheumatologic: [No Joint deformities] Neurologic: [Strength 5/5 all extremities, no gross sensory deficits] Results - Labs CBC & BMP: 05/05/17 03:05 05/05/17 03:05 - Impressions Left leg cellulitis Status: Acute Assessment and plan: Patient is on IV clindamycin and getting wound care Current Visit: Yes Essential hypertension Status: Chronic Assessment and plan: Controlled on Coreg 25 mg, Procardia XL 60 mg and hydralazine 25 mg continue Current Visit: Yes Diabetes mellitus type 2 Status: Chronic Assessment and plan: Controlled on insulin Current Visit: Yes Chronic kidney disease stage IV-V Status: Chronic Assessment and plan: Follow up as an outpatient, he has no uremic symptoms Current Visit: Yes Anemia of chronic kidney disease Status: Chronic Assessment and plan: Monitor CBC Current Visit: Yes Thrombocytopenia Status: Acute Assessment and plan: Monitor CBC Current Visit: Yes Hypokalemia Status: Acute Assessment and plan: Replaced 05/05, monitor metabolic profile Current Visit: Yes Quality Measures - VTE Contraindication to Pharmacological VTE Prophylaxis: High Risk of Bleeding Contraindication to Mechanical VTE Prophylaxis: Local Inflammation
[2017-05-05] MEDS ORDERED: ZALEPLON 5 MG CAPSULE PO PRN (17:30)
[2017-05-05] MEDS ORDERED: POTASSIUM CHLORIDE 20 MEQ TABLET PO ONE (17:30)
--- NOTE | 2017-05-05 18:31 | General Surgery Progress Note ---
Assessment and Plan (1) Left leg cellulitis Status: Acute Assessment and plan: Continue elevation of left leg with local wound care and antibiotics. Current Visit: Yes Subjective Patient reports: Present: no new complaints, feels better, still having pain, pain is less, flatus, no bowel movement, afebrile. Absent: nausea, vomiting Exam - Constitutional Vitals: Period Temp Pulse Resp BP Sys/Ballesteros Pulse Ox Last 24 Hr 97.3 F-98.8 F 54-68 17-19 101-128/51-74 96-98 General appearance: no acute distress, morbidly obese - Head Head exam: Present: normal inspection, normocephalic - Eye Eye exam: Present: EOMI. Absent: scleral icterus Pupils: Present: BRYAN - ENT ENT exam: Present: normal exam Mouth exam: Present: normal external inspection, normal voice - Neck Neck exam: Present: normal inspection, trachea midline - Respiratory Respiratory exam: Present: clear to auscultation bilaterally. Absent: accessory muscle use, chest wall tenderness - Cardiovascular Cardiovascular exam: Present: RRR. Absent: systolic murmur, tachycardia - GI/Abdominal GI/Abdominal exam: Present: normal bowel sounds, soft. Absent: distended, tenderness, rebound - Extremities Exam Extremities exam: Present: other (There is erythema and swelling on the left leg and the open wound has cleaned up nicely with local wound care compared to yesterday.) - Back Exam Back exam: Present: normal inspection - Neurological Exam Neurological exam: Present: alert, oriented X3 Speech: Present: normal - Skin Skin exam: Present: normal color, warm Results - Labs CBC & BMP: 05/05/17 03:05 05/05/17 03:05 Quality Measures - VTE Contraindication to Pharmacological VTE Prophylaxis: High Risk of Bleeding Contraindication to Mechanical VTE Prophylaxis: Local Inflammation
[2017-05-05] MEDS: SIMVASTATIN 20 MG TABLET PO SCH (21:22)
[2017-05-06] MEDS: CLINDAMYCIN INJ 600 MG in PREMIX 1 EACH IV SCH ×3 (03:55→21:10)
[2017-05-06] MEDS: SODIUM CHLORIDE 0.9% 1,000 ML IV SCH ×2 (03:55→11:50)
[2017-05-06] MEDS: INSULIN LISPRO 100 UNIT/ML SUBCUT SCH ×4 (07:34→21:13)
[2017-05-06] MEDS: CARVEDILOL 25 MG TABLET PO SCH ×2 (08:10→17:08)
[2017-05-06] MEDS: PANTOPRAZOLE 40 MG TABLET PO SCH (09:42)
[2017-05-06] MEDS: hydrALAZINE 25 MG TABLET PO SCH ×4 (09:42→21:13)
[2017-05-06] MEDS: CALCIUM (CARBONATE)/VITAMIN D 600 MG-400 UNIT TABLET PO SCH ×2 (09:42→21:11)
[2017-05-06] MEDS: ASPIRIN EC 81 MG TABLET PO SCH (09:43)
[2017-05-06] MEDS: CHLORHEXIDINE 4% SOLN 118 ML BOTTLE TOP SCH (13:35)
[2017-05-06] MEDS: SODIUM HYPOCHLORITE 0.25% IRRIG 473 ML BOTTLE TOP SCH (13:35)
--- NOTE | 2017-05-06 13:56 | Hospitalist Progress Note ---
Hospitalist: Subjective Interval history: 46-year-old with history of hypertension and diabetes was admitted with cellulitis of the left lower leg with ulceration. Exam - Constitutional Vitals: Period Temp Pulse Resp BP Sys/Ballesteros Pulse Ox Last 24 Hr 97.0 F-97.9 F 58-61 14-20 119-147/66-75 98-100 Exam: General: [No Acute Distress] HEENT: [Normocephalic, atraumatic, Extra ocular movements intact] Neck: [Supple, No JVD] Chest: [Clear to auscultation B/L] CV: [S1 + S2 audible without murmur, gallop or rub] Abd: [soft, NT, Non-distended, BS +] Ext: [venous stasis ulceration of the left lower leg medial malleolus] Skin: [No purpura, bruising or rash] Rheumatologic: [No Joint deformities] Neurologic: [Strength 5/5 all extremities, no gross sensory deficits] Results - Labs CBC & BMP: 05/05/17 03:05 05/05/17 03:05 - Impressions - Impressions Left leg cellulitis Status: Acute Assessment and plan: Patient is on IV clindamycin and getting wound care Current Visit: Yes Essential hypertension Status: Chronic Assessment and plan: Controlled on Coreg 25 mg, Procardia XL 60 mg and hydralazine 25 mg continue Current Visit: Yes Diabetes mellitus type 2 Status: Chronic Assessment and plan: Controlled on insulin Current Visit: Yes Chronic kidney disease stage IV-V Status: Chronic Assessment and plan: Follow up as an outpatient, he has no uremic symptoms Current Visit: Yes Anemia of chronic kidney disease Status: Chronic Assessment and plan: Monitor CBC Current Visit: Yes Thrombocytopenia Status: Acute Assessment and plan: Monitor CBC Current Visit: Yes Hypokalemia Status: Acute Assessment and plan: Replaced 05/05, monitor metabolic profile Current Visit: Yes Quality Measures - VTE Contraindication to Pharmacological VTE Prophylaxis: High Risk of Bleeding Contraindication to Mechanical VTE Prophylaxis: Local Inflammation
--- NOTE | 2017-05-06 14:09 | Event Note ---
The patient was out of his room today when I went around on him. Per the nurses the wound is improving. I will see him again tomorrow.
[2017-05-06] MEDS: SIMVASTATIN 20 MG TABLET PO SCH (21:10)
[2017-05-07] MEDS: SODIUM CHLORIDE 0.9% 1,000 ML IV SCH ×4 (00:08→21:18)
[2017-05-07] MEDS: CLINDAMYCIN INJ 600 MG in PREMIX 1 EACH IV SCH ×3 (03:58→18:35)
[2017-05-07 05:53] LABS: Basophils % 0.2 % (0.0-0.8); Eosinophils # 0.3 10*3/uL (0.0-0.87); Eosinophils % 5.3 % (0.00-10.9); Hematocrit 22.1 VOL% (42.0-52.0); Hemoglobin 7.1 GM/DL (14.0-18.0); Immature Granulocytes % 0.6 %; Immature Granulocytes Absolute 0.03 #; Lymphocytes # 1.4 10*3/uL (1.4-4.0); Mean Corpuscular HGB Conc 32.1 GM/DL (32-36); Mean Corpuscular Hemoglobin 29 PG (27-34); Mean Corpuscular Volume 89.8 FL (87-102); Mean Platelet Volume 10.6 FL (9.6-12.0); Monocytes # 0.4 10*3/uL (0.11-0.8); Monocytes % 8.6 % (1.7-12.7); Neutrophils # 2.6 10*3/uL (1.4-7.4); Neutrophils % 55.3 % (38.7-73.9); Platelet Count 158 T/CUMM (130-400); Red Blood Count 2.46 MC/CUMM (3.8-5.5); Red Cell Distribution Width 14.6 % (9.3-17.3); White Blood Count 4.8 T/CUMM (4-12)
[2017-05-07 06:30] LABS: Calcium 5.9 MG/DL (8.5-10.1); Potassium 3.7 MMOL/L (3.5-5.1)
[2017-05-07] MEDS: INSULIN LISPRO 100 UNIT/ML SUBCUT SCH ×4 (07:18→21:26)
[2017-05-07] MEDS: CARVEDILOL 25 MG TABLET PO SCH ×2 (10:02→17:32)
[2017-05-07] MEDS: ASPIRIN EC 81 MG TABLET PO SCH (10:02)
[2017-05-07] MEDS: hydrALAZINE 25 MG TABLET PO SCH ×4 (10:02→21:26)
[2017-05-07] MEDS: PANTOPRAZOLE 40 MG TABLET PO SCH (10:02)
[2017-05-07] MEDS: CALCIUM (CARBONATE)/VITAMIN D 600 MG-400 UNIT TABLET PO SCH ×2 (10:03→21:26)
[2017-05-07] MEDS: SODIUM HYPOCHLORITE 0.25% IRRIG 473 ML BOTTLE TOP SCH (10:11)
[2017-05-07] MEDS: CHLORHEXIDINE 4% SOLN 118 ML BOTTLE TOP SCH (10:11)
--- NOTE | 2017-05-07 12:08 | General Surgery Progress Note ---
Assessment and Plan (1) Left leg cellulitis Status: Acute Assessment and plan: Continue elevation of left leg with local wound care and antibiotics. Current Visit: Yes Subjective Patient reports: Present: no new complaints, feels better, pain is less, tolerating a regular diet, afebrile Exam - Constitutional Vitals: Period Temp Pulse Resp BP Sys/Ballesteros Pulse Ox Last 24 Hr 97.4 F-98.2 F 59-70 17-20 98-143/51-81 97-99 General appearance: no acute distress, morbidly obese - Head Head exam: Present: normal inspection, normocephalic - Eye Eye exam: Present: EOMI Pupils: Present: BRYAN - ENT ENT exam: Present: normal exam Mouth exam: Present: normal external inspection, normal voice - Neck Neck exam: Present: normal inspection, trachea midline - Respiratory Respiratory exam: Present: clear to auscultation bilaterally. Absent: accessory muscle use, chest wall tenderness - Cardiovascular Cardiovascular exam: Present: RRR. Absent: systolic murmur, tachycardia - GI/Abdominal GI/Abdominal exam: Present: soft. Absent: tenderness, rebound - Extremities Exam Extremities exam: Present: other (stable left lower leg exam with decreasing erythema, clear drainage, looks like venous stasis ulcer but is having improved granulation tissue) - Back Exam Back exam: Present: normal inspection - Neurological Exam Neurological exam: Present: alert, oriented X3 Speech: Present: normal - Skin Skin exam: Present: normal color, warm Results - Labs CBC & BMP: 05/07/17 04:51 05/07/17 04:51 Quality Measures - VTE Contraindication to Pharmacological VTE Prophylaxis: High Risk of Bleeding Contraindication to Mechanical VTE Prophylaxis: Local Inflammation
[2017-05-07] MEDS ORDERED: MAGNESIUM SULF RIDER 2 GM in PREMIX 1 EACH IV ONE (14:26)
[2017-05-07 15:33] LABS: Apearance,Urine CLEAR (Clear); Bilirubin,Urine Negative (Negative); Blood, Urine Small mg/dL (Negative); Glucose,Urine (UA) 50 mg/dL (Negative); Ketones,Urine Negative (Negative); Nitrite,Urine Negative (Negative); Protein,Urine 100 MG/DL; Squamous Epithelial Cell,Urine Occasional /HPF (0-10); Urine Color Colorless (Yellow); Urine Specific Gravity 1.005 (1.001-1.035); Urine Urobilinogen < 2.0 EU/DL (0.2-1.0); WBC,Urine <1 /HPF (0-6)
--- NOTE | 2017-05-07 16:12 | Hospitalist Progress Note ---
Hospitalist: Subjective Interval history: 46-year-old with history of hypertension and diabetes was admitted with cellulitis of the left lower leg with ulceration. He is getting antibiotics and wound care Exam - Constitutional Vitals: Period Temp Pulse Resp BP Sys/Ballesteros Pulse Ox Last 24 Hr 97.7 F-98.5 F 60-70 17-20 98-143/51-81 97-99 Exam: General: [No Acute Distress] HEENT: [Normocephalic, atraumatic, Extra ocular movements intact] Neck: [Supple, No JVD] Chest: [Clear to auscultation B/L] CV: [S1 + S2 audible without murmur, gallop or rub] Abd: [soft, NT, Non-distended, BS +] Ext: [venous stasis ulceration of the left lower leg medial malleolus] Skin: [No purpura, bruising or rash] Rheumatologic: [No Joint deformities] Neurologic: [Strength 5/5 all extremities, no gross sensory deficits] Results - Labs CBC & BMP: 05/07/17 04:51 05/07/17 04:51 - Impressions - Impressions Left leg cellulitis Status: Acute Assessment and plan: Patient is on IV clindamycin and getting wound care Current Visit: Yes Essential hypertension Status: Chronic Assessment and plan: Controlled on Coreg 25 mg, Procardia XL 60 mg and hydralazine 25 mg continue Current Visit: Yes Diabetes mellitus type 2 Status: Chronic Assessment and plan: Controlled on insulin Current Visit: Yes Chronic kidney disease stage IV-V Status: Chronic Assessment and plan: Patient reports he has not seen a lumber chain offbearer in the past although he is aware of his renal failure. Nephrology has been consulted Current Visit: Yes Anemia of chronic kidney disease Status: Chronic Assessment and plan: Monitor CBC, hematocrit is stable Current Visit: Yes Thrombocytopenia Status: Acute Assessment and plan: This has resolved Current Visit: Yes Hypokalemia Status: Acute Assessment and plan: Replaced 05/05, resolved, monitor metabolic profile Current Visit: Yes Quality Measures - VTE Contraindication to Pharmacological VTE Prophylaxis: High Risk of Bleeding Contraindication to Mechanical VTE Prophylaxis: Local Inflammation
[2017-05-07] MEDS: SIMVASTATIN 20 MG TABLET PO SCH (21:26)
[2017-05-08] MEDS: CLINDAMYCIN INJ 600 MG in PREMIX 1 EACH IV SCH ×3 (02:04→19:33)
[2017-05-08] MEDS: SODIUM CHLORIDE 0.9% 1,000 ML IV SCH (05:52)
[2017-05-08] MEDS: INSULIN LISPRO 100 UNIT/ML SUBCUT SCH ×4 (07:18→20:02)
[2017-05-08] MEDS: ASPIRIN EC 81 MG TABLET PO SCH (09:11)
[2017-05-08] MEDS: CARVEDILOL 25 MG TABLET PO SCH ×2 (09:11→16:43)
[2017-05-08] MEDS: CALCIUM (CARBONATE)/VITAMIN D 600 MG-400 UNIT TABLET PO SCH ×2 (09:11→20:02)
[2017-05-08] MEDS: PANTOPRAZOLE 40 MG TABLET PO SCH (09:12)
[2017-05-08] MEDS: hydrALAZINE 25 MG TABLET PO SCH ×4 (09:12→20:02)
--- NOTE | 2017-05-08 09:28 | General Surgery Progress Note ---
Assessment and Plan (1) Left leg cellulitis Status: Acute Assessment and plan: Continue elevation of left leg with local wound care and antibiotics. Please call back with further questions. Consider consulting wound care team necessary for management of this wound. Please refer to outpatient wound care center at [facility] after discharge. Current Visit: Yes Subjective Patient reports: Present: no new complaints, feels better, pain is less, afebrile. Absent: nausea, vomiting Exam - Constitutional Vitals: Period Temp Pulse Resp BP Sys/Ballesteros Pulse Ox Last 24 Hr 97.0 F-98.5 F 54-63 18-20 116-143/53-82 97-100 General appearance: no acute distress, morbidly obese - Head Head exam: Present: normal inspection, normocephalic - Eye Eye exam: Present: EOMI Pupils: Present: BRYAN - ENT ENT exam: Present: normal exam Mouth exam: Present: normal external inspection, normal voice - Neck Neck exam: Present: normal inspection, trachea midline - Respiratory Respiratory exam: Present: clear to auscultation bilaterally. Absent: accessory muscle use, chest wall tenderness - Cardiovascular Cardiovascular exam: Present: RRR. Absent: systolic murmur, tachycardia - GI/Abdominal GI/Abdominal exam: Present: soft. Absent: tenderness, rebound - Extremities Exam Extremities exam: Present: other (Venous stasis ulceration medial malleolus left lower leg extending onto the anterior lower leg. Decreased erythema with no foul odor or concerning drainage.) - Back Exam Back exam: Present: normal inspection - Neurological Exam Neurological exam: Present: alert, oriented X3 Speech: Present: normal - Skin Skin exam: Present: normal color, warm Results - Labs CBC & BMP: 05/07/17 04:51 05/07/17 04:51 Quality Measures - VTE Contraindication to Pharmacological VTE Prophylaxis: High Risk of Bleeding Contraindication to Mechanical VTE Prophylaxis: Local Inflammation
--- NOTE | 2017-05-08 10:17 | Hospitalist Progress Note ---
Assessment and Plan (1) CKD (chronic kidney disease) stage 4, GFR 15-29 ml/min Status: Chronic Assessment and plan: Nephrology consulted. Current Visit: Yes (2) Diabetes mellitus Status: Chronic Current Visit: No Qualifiers: Diabetes mellitus type: type 2 Diabetes mellitus complication status: with kidney complications Diabetes mellitus complication detail: with chronic kidney disease Diabetes mellitus longterm insulin use: with longterm use Chronic kidney disease stage: stage 4 (severe) Qualified Code(s): E11.22 - Type 2 diabetes mellitus with diabetic chronic kidney disease; N18.4 - Chronic kidney disease, stage 4 (severe); Z79.4 - long-term (current) use of insulin (3) Diabetic leg ulcer Status: Acute Current Visit: Yes (4) Left leg cellulitis Status: Acute Assessment and plan: Continue IV antibiotics and wound care. Discharge planning. Current Visit: Yes Hospitalist: Subjective Interval history: Patient seen and examined. No acute events overnight. Case discussed with nursing staff. Labs reviewed. Mr. bermeo is receiving IV antibiotics for left lower extremity wound and cellulitis. Surgery consults reviewed. Will consult wound care for continued management. Exam - Constitutional Vitals: Period Temp Pulse Resp BP Sys/Ballesteros Pulse Ox Last 24 Hr 97.0 F-98.5 F 54-63 18-20 116-143/53-82 97-100 Exam: Constitutional System: No distress. No tremulousness. Morbidly obese Head: Normocephalic, atraumatic. Ears, Nose and Throat System: No pain or tenderness. No epistaxis or discharge Eyes System: Pupils equal, round, and reactive. Extraocular muscles intact. Neck: Supple, without adenopathy, No jugular venous distention. No thyromegaly, neck mass, or prior surgery apparent. Respiratory System: Chest clear to auscultation. Cardiovascular System: Heart with regular rate and rhythm. No murmur. GI System: Abdomen soft, nontender. Normo active bowel sounds present. Musculoskeletal System: Left lower extremity with redness and warmth. Swelling noted. Large ulceration wound on the anterior surface of the left lower extremity. No evidence of active infection in the wound or drainage. The surrounding erythema and redness are consistent with cellulitis and appear to be improving. Neurological System: No discernable sensory deficit. No aphasia Psychiatric System: Conversation is rational Results - Labs CBC & BMP: 05/07/17 04:51 05/07/17 04:51 Lab Results: I have reviewed the past 24 hour labs Quality Measures - VTE Contraindication to Pharmacological VTE Prophylaxis: High Risk of Bleeding Contraindication to Mechanical VTE Prophylaxis: Local Inflammation
--- NOTE | 2017-05-08 10:59 | Nephrology Consult Note ---
History of Present Illness Chief complaint: Increased BUN and creatinine History of present illness: Mr. Muñoz is a 46 year old male who was admitted to the hospital for wound care. We were asked see the patient for increased BUN and creatinine on admission is creatinine is around 6 mg/dL review of his lab from a previous admission earlier this month reveals his creatinine to have been around 7 mg/dL at that time. About 2 years ago he had a creatinine of around 2 mg/dL. Patient has a long history of diabetes and hypertension. He states he has seen Dr. Boss the kidney doctor had [facility] on occasion in the past. Although when asked he denied any history of kidney failure. The patient developed a large blister on his left leg about a week or so ago and states he has chronic swelling in his legs. This blister recently ruptured and is now getting wound care for this. The patient also has a history of huffing paint and was put in the hospital a few weeks ago for lab abnormalities including a severe metabolic acidosis. Patient denies fever or chills. ROS: Head - denies headaches ENT -positive sore throat Lymphatics - denies lymphadenopathy Hematology - denies bleeding problems Heart - denies chest pain Lungs -positive shortness of breath Abdomen - denies abdominal pain Musculoskeletal -positive arthritis Skin - denies rash other than the blisters and hyperpigmentation in his lower legs Neurology - denies stroke, he states she has had a seizure in the past General - denies fever PE: General: in no acute distress Eyes: Pupils are round and reactive, conjunctivae are clear ENT: Nose is clear, O/P is benign Neck: Supple, no thyromegaly Lymphatics: No cervical, supraclavicular or axillary adenopathy Heart: Regular rate and rhythm, he has 1-2+ pitting edema extending up into his thighs Lungs: Clear to auscultation anteriorly, chest expansion symmetric Abdomen: Soft, normoactive bowel sounds, no hepatomegaly Musculoskeletal: No joint erythema or effusions or joint asymmetry Skin: Normal turgor, normal hydration, no rash Neuro/Psych: Alert and cooperative with poor insight Home Medications Medication Instructions Recorded Confirmed Type Albuterol Inhaler [Proventil 2 puff INH Q4H PRN 04/18/17 05/04/17 History Inhaler] Albuterol/Ipratropium Neb [Duoneb] 3 ml RESP TX RT Q4H PRN 04/18/17 05/04/17 History Aspirin EC Tab 81 mg PO DAILY 04/18/17 05/04/17 History Calcium (Carb)/Vit D 600-400 1 tablet PO BID 04/18/17 05/04/17 History [Caltrate 600 + D] NIFEdipine [Nifedipine ER] 60 mg PO DAILY 04/18/17 05/04/17 History Simvastatin [Zocor] 20 mg PO BEDTIME 04/18/17 05/04/17 History Carvedilol [Coreg] 25 mg PO BID W/MEALS #60 tablet 04/25/17 05/04/17 Rx Doxycycline Hyclate Cap 100 mg PO BID #10 capsule 04/25/17 05/04/17 Rx [Vibramycin Cap] hydrALAZINE TAB [Apresoline Tab] 25 mg PO QID #120 tablet 04/25/17 05/04/17 Rx Allergies Allergy/AdvReac Type Severity Reaction Status Date / Time No Known Allergies Allergy Verified 05/04/17 11:13 Medical,Surgical,& Family Hx - Medical History Cardio: History of: Hypertension Psychological: History of: Anxiety Disorders Neurology: History of: Migraine (triggered by strong perfumes), Seizures (in 2006) Endocrine: History of: Diabetes Mellitus (NIDDM) Respiratory: History of: Intubation - Family History Family History: Reports;: Family Diabetes (mother) - Social History Smoking Status: Current some day smoker Frequency of Alcohol Use: Occasionally Type of Drug Use: None Exam - Vital Signs Vital signs: Period Temp Pulse Resp BP Sys/[place] Pulse Ox Last 24 Hr 97.0 F-98.5 F 54-63 18-20 116-143/53-82 97-100 Results - Labs CBC & BMP: 05/07/17 04:51 05/07/17 04:51 Assessment and Plan (1) CKD (chronic kidney disease) stage 4, GFR 15-29 ml/min Status: Chronic Assessment and plan: It looks like this patient has developed chronic kidney disease that is quite advanced, he is asymptomatic from a uremic symptoms at this time however if we cannot affect a diuresis with medications he may need to start dialysis for fluid retention reasons. Current Visit: Yes (2) Bradycardia Status: Acute Assessment and plan: I am going to decrease his beta-jeyson due to his slow heart rate, if his heart rate comes up this may help his perfusion to his kidneys Current Visit: Yes (3) Hypertension Status: Acute Assessment and plan: We will keep a check on his blood pressure with decreasing his Coreg he may need an increase in his Procardia. Current Visit: Yes (4) Hypocalcemia Status: Acute Assessment and plan: I will check an albumin level as well as a phosphorus level on tomorrow's lab Current Visit: Yes (5) Diabetic leg ulcer Status: Acute Current Visit: Yes (6) Left leg cellulitis Status: Acute Current Visit: Yes (7) Anemia Status: Chronic Assessment and plan: I will be inclined to transfuse this patient a couple units of blood once we have him a little air drier. Current Visit: No Qualifiers: Anemia type: due to chronic kidney disease Chronic kidney disease stage: stage 3 (moderate) Qualified Code(s): N18.3 - Chronic kidney disease, stage 3 (moderate); D63.1 - Anemia in chronic kidney disease (8) Diabetes mellitus Status: Chronic Current Visit: No Qualifiers: Diabetes mellitus type: type 2 Diabetes mellitus complication status: with kidney complications Diabetes mellitus complication detail: with chronic kidney disease Diabetes mellitus senior living insulin use: with towel inspector use Chronic kidney disease stage: stage 4 (severe) Qualified Code(s): E11.22 - Type 2 diabetes mellitus with diabetic chronic kidney disease; N18.4 - Chronic kidney disease, stage 4 (severe); 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
[2017-05-08] MEDS: SODIUM HYPOCHLORITE 0.25% IRRIG 473 ML BOTTLE TOP SCH (11:48)
[2017-05-08] MEDS: CHLORHEXIDINE 4% SOLN 118 ML BOTTLE TOP SCH (11:48)
[2017-05-08] MEDS ORDERED: SODIUM CHLORIDE 0.9% 250 ML IV PRN (14:54)
[2017-05-08] MEDS: FUROSEMIDE 40 MG/4 ML VIAL IV SCH (15:07)
[2017-05-08] MEDS: SIMVASTATIN 20 MG TABLET PO SCH (20:02)
[2017-05-09] MEDS: CLINDAMYCIN INJ 600 MG in PREMIX 1 EACH IV SCH ×2 (03:13→10:49)
[2017-05-09 05:31] LABS: Basophils % 0.6 % (0.0-0.8); Eosinophils # 0.3 10*3/uL (0.0-0.87); Eosinophils % 6.1 % (0.00-10.9); Hematocrit 27.3 VOL% (42.0-52.0); Immature Granulocytes % 0.4 %; Immature Granulocytes Absolute 0.02 #; Lymphocytes # 1.3 10*3/uL (1.4-4.0); Lymphocytes % 26.5 % (21.2-54.2); Mean Corpuscular Hemoglobin 29 PG (27-34); Mean Corpuscular Volume 88.6 FL (87-102); Mean Platelet Volume 10.8 FL (9.6-12.0); Monocytes # 0.4 10*3/uL (0.11-0.8); Monocytes % 7.3 % (1.7-12.7); Neutrophils # 2.9 10*3/uL (1.4-7.4); Neutrophils % 59.1 % (38.7-73.9); Platelet Count 175 T/CUMM (130-400); Red Cell Distribution Width 14.9 % (9.3-17.3); White Blood Count 4.9 T/CUMM (4-12)
[2017-05-09 05:34] LABS: Red Blood Count 3.08 MC/CUMM (3.8-5.5)
[2017-05-09 05:58] LABS: Albumin 1.9 G/DL (3.4-5.0); Calcium 6.1 MG/DL (8.5-10.1); Osmolality,Calculated 306.8 MOS/KG (273-304); Potassium 4.1 MMOL/L (3.5-5.1)
[2017-05-09] MEDS: INSULIN LISPRO 100 UNIT/ML SUBCUT SCH ×3 (07:15→15:40)
--- NOTE | 2017-05-09 07:42 | Nephrology Progress Note ---
Nephrology - PN: Subj Interval history: Patient denies shortness of breath. Review of systems GI he denies nausea or vomiting Physical exam general the patient chronically ill-appearing Assessment/plan 1. Chronic kidney disease stage IV-patient's creatinine is 5.7 mg/dL down from 6 mg/dL the day prior to this despite a good response to Lasix that was started yesterday. 2. Volume overload-patient seems to respond well to Lasix 80 mg IV twice daily , he had about 4 L of urine output yesterday, his weight however is unchanged ( I suspect this weight is inaccurate) 3. Diabetes mellitus 4. Hypertension continue present therapy 5. Left leg wound continue present care Exam (PN)-Nephrology - Vital Signs Vital signs: Period Temp Pulse Resp BP Sys/Ballesteros Pulse Ox Last 24 Hr 96.9 F-97.9 F 53-60 16-20 96-135/50-68 95-100 - Lab 05/09/17 03:53 05/09/17 03:53 Most recent lab results Calcium 6.1 MG/DL (8.5-10.1) L 05/09/17 03:53 Phosphorus 6.0 MG/DL (2.5-4.9) H 05/09/17 03:53 Magnesium 1.5 MG/DL (1.8-2.4) L 05/05/17 03:05 Assessment and Plan (1) CKD (chronic kidney disease) stage 4, GFR 15-29 ml/min Status: Chronic Assessment and plan: It looks like this patient has developed chronic kidney disease that is quite advanced, he is asymptomatic from a uremic symptoms at this time however if we cannot affect a diuresis with medications he may need to start dialysis for fluid retention reasons. Current Visit: Yes (2) Bradycardia Status: Acute Assessment and plan: I am going to decrease his beta-jeyson due to his slow heart rate, if his heart rate comes up this may help his perfusion to his kidneys Current Visit: Yes (3) Hypertension Status: Acute Assessment and plan: We will keep a check on his blood pressure with decreasing his Coreg he may need an increase in his Procardia. 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 Current Visit: No Qualifiers: Anemia type: due to chronic kidney disease Chronic kidney disease stage: stage 3 (moderate) Qualified Code(s): N18.3 - Chronic kidney disease, stage 3 (moderate); D63.1 - Anemia in chronic kidney disease (8) Diabetes mellitus Status: Chronic Current Visit: No Qualifiers: Diabetes mellitus type: type 2 Diabetes mellitus complication status: with kidney complications Diabetes mellitus complication detail: with chronic kidney disease Diabetes mellitus half-way insulin use: with manager terminal use Chronic kidney disease stage: stage 4 (severe) Qualified Code(s): E11.22 - Type 2 diabetes mellitus with diabetic chronic kidney disease; N18.4 - Chronic kidney disease, stage 4 (severe); Z79.4 - assisted (current) use of insulin (9) Inhalant abuse Status: Chronic Current Visit: No (10) Volume overload Status: Acute Current Visit: Yes
[2017-05-09] MEDS: ASPIRIN EC 81 MG TABLET PO SCH (08:23)
[2017-05-09] MEDS: CARVEDILOL 25 MG TABLET PO SCH ×2 (08:24→16:08)
[2017-05-09] MEDS: hydrALAZINE 25 MG TABLET PO SCH ×3 (08:24→16:05)
[2017-05-09] MEDS: FUROSEMIDE 40 MG/4 ML VIAL IV SCH ×2 (08:25→16:09)
[2017-05-09] MEDS: PANTOPRAZOLE 40 MG TABLET PO SCH (08:25)
[2017-05-09] MEDS: CALCIUM (CARBONATE)/VITAMIN D 600 MG-400 UNIT TABLET PO SCH (08:25)
--- NOTE | 2017-05-09 10:41 | Discharge Summary ---
<Jl Batistadra - Last Filed: 05/09/17 12:06> Hospital Course - Hospital Course Hospital Course: Mr. Muñoz w/PMHx of hypertension, anxiety, migraine, seizure (2006), diabetes, paint inhalation abuse and current smoker presented as a direct admit on from [facility] for further evaluation left leg ulcer on anterior grossman. Hospital Services admitted and started IV antibiotics. Surgery consulted surgery for assistance with wound care. Surgery recommended wound care services, leg elevation, continue antibiotics for cellulitis of left lower leg with ulceration. Nephrology consulted for renal function evaluation and notes chronic kidney disease Stage IV; patient received 2 units of PRBCs for acute anemia and diuretics for volume overload. Patient anemia and renal function showed improvements. Left leg wound continues to improve with antibiotic therapy and wound care. Blood cultures final is negative. Blood glucose remained controlled throughout hospitalization with close monitoring. Today 05/09/17 patient is stable and is ready for discharge home. He will need to continue with outpatient [facility] for left lower leg. He will need to follow up with Nephrology for continue evaluation of chronic kidney disease. He will need to follow up with primary care physician at [facility]. Further recommendations with discharge planning as per Dr Awan. I have personally seen and examined this patient today. I agree with the below note as prepared by the advanced practice provider. I agree with the assessment and plan. He is going home with a prescription for Keflex and clindamycin. He needs to continue outpatient wound care. Discharge Plan - Discharge Data Disposition: Disch To Home/Self Care - Discharge Medications New cephALEXin [Keflex] 500 mg PO Q12HR #14 capsule Chlorhexidine 4% Soln [Hibiclens] 1 applic TOP DAILY applic Furosemide Tab [Lasix Tab] 80 mg PO DAILY #30 tablet Hydrocodone/Acetaminophen [[place] 10-325 Tablet] 1 each PO Q6-8H PRN #20 tablet PRN Reason: Pain Moderate (4-7) Clindamycin Cap [Cleocin Cap] 300 mg PO Q8HR #20 capsule Sodium Hypochlorite 0.25% Irr [[place] 1/2 Strength 0.25% Soln] 1 applic TOP DAILY applic Continue Simvastatin [Zocor] 20 mg PO BEDTIME Calcium (Carb)/Vit D 600-400 [Caltrate 600 + D] 1 tablet PO BID Albuterol/Ipratropium Neb [Duoneb] 3 ml RESP TX RT Q4H PRN PRN Reason: Shortness Of Breath/Wheezing Albuterol Inhaler [Proventil Inhaler] 2 puff INH Q4H PRN PRN Reason: Shortness Of Breath/Wheezing NIFEdipine [Nifedipine ER] 60 mg PO DAILY Carvedilol [Coreg] 25 mg PO BID W/MEALS #60 tablet hydrALAZINE TAB [Apresoline Tab] 25 mg PO QID #120 tablet Aspirin EC Tab 81 mg PO DAILY Discontinued Doxycycline Hyclate Cap [Vibramycin Cap] 100 mg PO BID #10 capsule - Follow Up or Referral - Forms/Instructions Exam - Constitutional Vitals: Period Temp Pulse Resp BP Sys/Ballesteros Pulse Ox Last 24 Hr 96.9 F-97.9 F 53-60 16-20 96-146/50-75 95-100 Discharge Results Procedures and tests throughout hospitalization: Pending Orders 05/04/17 11:31 Blood Culture Stat Labs on day of discharge: Labs from last 24 hours 05/09/17 05/09/17 05/09/17 10:56 06:46 03:53 WBC RBC Hgb Hct MCV MCH MCHC RDW Plt Count MPV Neut % (Auto) Lymph % (Auto) [place] % (Auto) Eos % (Auto) Baso % (Auto) Neut # (Auto) Lymph # (Auto) [place] # (Auto) Eos # (Auto) Baso # (Auto) Immature Gran % Nucleated RBC % Immature Gran # Nucleated RBCs # Immature Plt Fraction Sodium 144 Potassium 4.1 Chloride 108 H Carbon Dioxide 23 Anion Gap 17.1 H BUN 71 H Creatinine 5.70 H GFR Calculation 14 BUN/Creatinine Ratio 12.00 Glucose 93 POC Glucose 100 84 Calculated Osmolality 306.8 H Calcium 6.1 L Phosphorus 6.0 H Albumin 1.9 L Ur Random Creatinine Ur Random Microalbumin Microalb/Creat Ratio Blood Type Antibody Screen Crossmatch 05/09/17 05/08/17 05/08/17 03:53 19:55 16:01 WBC 4.9 RBC 3.08 L D Hgb 9.0 L D Hct 27.3 L MCV 88.6 MCH 29 MCHC 33.0 RDW 14.9 Plt Count 175 MPV 10.8 Neut % (Auto) 59.1 Lymph % (Auto) 26.5 [place] % (Auto) 7.3 Eos % (Auto) 6.1 Baso % (Auto) 0.6 Neut # (Auto) 2.9 Lymph # (Auto) 1.3 L [place] # (Auto) 0.4 Eos # (Auto) 0.3 Baso # (Auto) 0.0 Immature Gran % 0.4 Nucleated RBC % 0.0 Immature Gran # 0.02 Nucleated RBCs # 0.00 Immature Plt Fraction 0.0 Sodium Potassium Chloride Carbon Dioxide Anion Gap BUN Creatinine GFR Calculation BUN/Creatinine Ratio Glucose POC Glucose 151 H 108 H Calculated Osmolality Calcium Phosphorus Albumin Ur Random Creatinine Ur Random Microalbumin Microalb/Creat Ratio Blood Type Antibody Screen Crossmatch 05/08/17 05/08/17 05/08/17 15:07 14:00 14:00 WBC RBC Hgb Hct MCV MCH MCHC RDW Plt Count MPV Neut % (Auto) Lymph % (Auto) [place] % (Auto) Eos % (Auto) Baso % (Auto) Neut # (Auto) Lymph # (Auto) [place] # (Auto) Eos # (Auto) Baso # (Auto) Immature Gran % Nucleated RBC % Immature Gran # Nucleated RBCs # Immature Plt Fraction Sodium Potassium Chloride Carbon Dioxide Anion Gap BUN Creatinine GFR Calculation BUN/Creatinine Ratio Glucose POC Glucose Calculated Osmolality Calcium Phosphorus Albumin Ur Random Creatinine 50 50 Ur Random Microalbumin 1590.0 H Microalb/Creat Ratio 3180.0 H Blood Type O POSITIVE Antibody Screen Negative Crossmatch See Detail Preliminary micro results at discharge 05/04/17 11:31 Blood Culture - Preliminary Blood No growth at 3 days 05/04/17 11:31 Blood Culture - Preliminary Blood No growth at 3 days DS: Provider Date of admission: 05/04/17 09:03 Primary care physician: Yvonne Wylie MD Attending physician on admission: Xavi Colby MD Consults: 05/04/17 09:06 Consult to Diabetes Center, Educator [CONS] Routine Reason for Cub Reporter: Diabetes Education 05/04/17 11:17 Consult to Pastoral Services [CONS] Routine Comment: Pastoral Screen: Request Materials Research Engineer Visit Pastoral Screen Source of Request: Patient 05/04/17 13:39 Consult to Physician [CONS] Routine Comment: left leg wound Consulting Provider: Helio Haskins Consulting Provider Notified: Yes When should Consulting Provider be notified: Now Person Notified: dr. haskins knows about Date Notified: 05/04/17 Time Notified: 14:08 05/06/17 13:50 Consult to Case Mgmt/Social Srvs [CONS] Routine Reason for Case Mgmt/Social Srvs: Home Health Consult Comment: Pt will need HH & Wound Care Services for left leg ulcer 05/07/17 14:22 Consult to Physician [CONS] Routine Comment: Please evaluate for renal failure Consulting Provider: Joseph Pereyra Consulting Provider Notified: Yes When should Consulting Provider be notified: Now When should Consulting Provider be notified: Now Person Notified: rosaura díaz Date Notified: 05/07/17 Time Notified: 14:33 05/08/17 10:14 Consult to Wound Care - [place] [CONS] Routine Reason for Wound Care: Wound Care Management Consult Comment: Left lower extremity wound Discharging clinician: Selam Batista NP <Didi Awan - Last Filed: 05/09/17 14:55> Hospital Course - Time spent with patient Time with patient DS: Greater than 30 minutes (Total discharge time for this patient, including [id number] time, clinical documentation, medication reconciliation, and discharge planning was 37 minutes.) Diagnosis - Discharge Diagnosis (1) CKD (chronic kidney disease) stage 4, GFR 15-29 ml/min Status: Chronic (2) Diabetes mellitus Status: Chronic (3) Diabetic leg ulcer Status: Acute (4) Left leg cellulitis Status: Acute Discharge Plan - Discharge Data Condition at Discharge: Stable Discharge Diet: advance to your usual diet Activity: resume usual activities as tolerated Hygiene: no restrictions Weight Bearing at Discharge: full weight bearing Driving: no restrictions Contact your physician if you experience:: fever over 101 - Forms/Instructions Additional Discharge Instructions: Follow up with wound care as an outpatient DS: Provider Expected date of discharge: 05/09/17
[2017-05-09] MEDS: SODIUM HYPOCHLORITE 0.25% IRRIG 473 ML BOTTLE TOP SCH (10:49)
[2017-05-09] MEDS: CHLORHEXIDINE 4% SOLN 118 ML BOTTLE TOP SCH (10:49)
[2017-05-09 15:59] VITALS: BP 113/58
== END 2017-05-09 16:40 | disposition home or self-care (01) | DRG 603 ==
LOC: SUATTDRO 09:03 → N.3E 10:42
PROVIDERS: ADMIT Internal Medicine Geriatric Medicine; ATTEND Family Medicine

== ENCOUNTER 2018-01-07 20:17 | Inpatient (IN) ==
[2018-01-07] MEDS ORDERED: DEXTROSE 50% 25 GM/50 ML VIAL IV PRN ×2 (23:58)
[2018-01-07] MEDS ORDERED: ALBUTEROL/IPRATROPIUM 3 ML NEB RESP TX PRN (23:58)
[2018-01-07] MEDS ORDERED: ONDANSETRON 4 MG/2 ML VIAL IV PRN (23:58)
[2018-01-07] MEDS ORDERED: ACETAMINOPHEN 325 MG TABLET PO PRN (23:58)
[2018-01-07] MEDS ORDERED: BISACODYL 5 MG TABLET PO PRN (23:58)
[2018-01-07] MEDS ORDERED: GLUCAGON 1 MG VIAL IM PRN ×2 (23:58)
[2018-01-08] MEDS: cefTRIAXone 1,000 MG in SYRINGE 1 EACH IV SCH (00:56)
[2018-01-08] MEDS ORDERED: SODIUM CHLORIDE 0.9% 1,000 ML IV PRN ×2 (01:01→02:25)
[2018-01-08 01:35] LABS: Basophils % 0.2 % (0.0-0.8); Eosinophils # 0.3 10*3/uL (0.0-0.87); Eosinophils % 2.4 % (0.00-10.9); Hematocrit 19.3 VOL% (42.0-52.0); Immature Granulocytes % 0.5 %; Immature Granulocytes Absolute 0.05 #; Mean Corpuscular HGB Conc 32.6 GM/DL (32-36); Mean Corpuscular Hemoglobin 29 PG (27-34); Mean Corpuscular Volume 90.2 FL (87-102); Mean Platelet Volume 9.9 FL (9.6-12.0); Monocytes # 1.1 10*3/uL (0.11-0.8); Monocytes % 9.8 % (1.7-12.7); Neutrophils # 8.4 10*3/uL (1.4-7.4); Neutrophils % 78.1 % (38.7-73.9); Platelet Count 174 T/CUMM (130-400); Red Blood Count 2.14 MC/CUMM (3.8-5.5); White Blood Count 10.8 T/CUMM (4-12)
[2018-01-08 01:40] LABS: Hemoglobin 6.3 GM/DL (14.0-18.0)
[2018-01-08 02:11] LABS: Alanine Aminotransferase 13 U/L (16-61); Albumin 2.7 G/DL (3.4-5.0); Alkaline Phosphatase 80 U/L (45-117); Aspartate Amino Transferase 18 U/L (0-37); Bilirubin,Total < 0.39 MG/DL (0.2-1.0); Blood Urea Nitrogen 108 MG/DL (7-18); Calcium 6.2 MG/DL (8.5-10.1); Cholesterol 109 MG/DL (50-200); Glucose 132 MG/DL (74-106); HDL Cholesterol 45 MG/DL (40-60); Osmolality,Calculated 312.5 MOS/KG (273-304); Potassium 4.8 MMOL/L (3.5-5.1); Risk Ratio 2.42; Sodium 139 MMOL/L (136-145); Thyroid Stimulating Hormone 0.906 uIU/ml (0.358-3.74); Total Protein 5.5 G/DL (6.4-8.3); Triglycerides 97 MG/DL (2-150); VLDL CHOLESTEROL 19.4 MG/DL
[2018-01-08] MEDS: AZITHROMYCIN INJ 500 MG in SODIUM CHLORIDE 0.9% 250 ML IV SCH (02:16)
[2018-01-08 03:22] LABS: Hepatitis A Ab IgM Quant 0.15 Index; Hepatitis A Ab IgM Result Negative (Negative); Hepatitis B Core IgM Quant 0.25 Index; Hepatitis B Core IgM Result Negative (Negative); Hepatitis B Surface Ag Quant < 0.10 Index; Hepatitis B Surface Ag Result Negative (Negative); Hepatitis C Virus Ab Result Negative (Negative)
[2018-01-08 06:16] LABS: Parathyroid Hormone Intact 659.1 PG/ML (18.4-80.1)
[2018-01-08 06:40] LABS: Apearance,Urine CLEAR (Clear); Bilirubin,Urine Negative (Negative); Blood, Urine Small mg/dL (Negative); Glucose,Urine (UA) 50 mg/dL (Negative); Ketones,Urine Negative (Negative); Nitrite,Urine Negative (Negative); Protein,Urine 100 MG/DL; RBC,Urine 2 /HPF (0-4); Squamous Epithelial Cell,Urine Occasional /HPF (0-10); Urine Color Straw (Yellow); Urine Specific Gravity 1.008 (1.001-1.035); Urine Urobilinogen < 2.0 EU/DL (0.2-1.0); WBC,Urine 1 /HPF (0-6)
[2018-01-08] MEDS ORDERED: INSULIN LISPRO 100 UNIT/ML SUBCUT SCH (07:30)
[2018-01-08] MEDS: INSULIN LISPRO 100 UNIT/ML SUBCUT SCH ×4 (08:45→21:00)
[2018-01-08] MEDS: CALCIUM (CARBONATE)/VITAMIN D 600 MG-400 UNIT TABLET PO SCH ×2 (08:45→20:50)
[2018-01-08] MEDS: CARVEDILOL 25 MG TABLET PO SCH ×2 (08:45→16:54)
[2018-01-08] MEDS: PANTOPRAZOLE 40 MG TABLET PO SCH (08:46)
[2018-01-08 10:18] LABS: Hematocrit 20.3 VOL% (42.0-52.0); Hemoglobin 6.8 GM/DL (14.0-18.0)
[2018-01-08 15:12] LABS: Hematocrit 25.1 VOL% (42.0-52.0); Hemoglobin 8.3 GM/DL (14.0-18.0)
[2018-01-08] MEDS: SODIUM HYPOCHLORITE 0.25% IRRIG 473 ML BOTTLE TOP SCH (16:51)
[2018-01-08] MEDS: CALCIUM (CARBONATE) 500 MG TABLET PO SCH (16:54)
[2018-01-08] MEDS: SODIUM BICARBONATE 650 MG TABLET PO SCH (20:52)
[2018-01-09] MEDS: cefTRIAXone 1,000 MG in SYRINGE 1 EACH IV SCH (00:28)
[2018-01-09] MEDS: AZITHROMYCIN INJ 500 MG in SODIUM CHLORIDE 0.9% 250 ML IV SCH (00:30)
[2018-01-09 06:07] LABS: Basophils % 0.4 % (0.0-0.8); Eosinophils # 0.4 10*3/uL (0.0-0.87); Eosinophils % 4.7 % (0.00-10.9); Hematocrit 22.8 VOL% (42.0-52.0); Hemoglobin 7.8 GM/DL (14.0-18.0); Immature Granulocytes % 0.4 %; Immature Granulocytes Absolute 0.03 #; Lymphocytes # 1.4 10*3/uL (1.4-4.0); Lymphocytes % 16.9 % (21.2-54.2); Mean Corpuscular HGB Conc 34.2 GM/DL (32-36); Mean Corpuscular Hemoglobin 30 PG (27-34); Mean Platelet Volume 10.1 FL (9.6-12.0); Monocytes % 11.3 % (1.7-12.7); Neutrophils # 5.6 10*3/uL (1.4-7.4); Neutrophils % 66.3 % (38.7-73.9); Platelet Count 182 T/CUMM (130-400); White Blood Count 8.5 T/CUMM (4-12)
[2018-01-09 06:09] LABS: Red Blood Count 2.59 MC/CUMM (3.8-5.5)
[2018-01-09 06:23] LABS: Calcium 6.1 MG/DL (8.5-10.1); Osmolality,Calculated 309.4 MOS/KG (273-304); Potassium 5.3 MMOL/L (3.5-5.1)
[2018-01-09 06:24] LABS: Albumin 2.4 G/DL (3.4-5.0); Bilirubin,Total 0.6 MG/DL (0.2-1.0); Calcium 6.1 MG/DL (8.5-10.1); Osmolality,Calculated 310.4 MOS/KG (273-304); Potassium 5.3 MMOL/L (3.5-5.1); Total Protein 5.3 G/DL (6.4-8.3)
[2018-01-09] MEDS: INSULIN LISPRO 100 UNIT/ML SUBCUT SCH ×4 (08:20→21:30)
[2018-01-09] MEDS: CARVEDILOL 25 MG TABLET PO SCH ×2 (08:21→18:59)
[2018-01-09] MEDS: PANTOPRAZOLE 40 MG TABLET PO SCH (08:21)
[2018-01-09] MEDS: CALCIUM (CARBONATE)/VITAMIN D 600 MG-400 UNIT TABLET PO SCH ×2 (08:21→21:29)
[2018-01-09] MEDS: CALCIUM (CARBONATE) 500 MG TABLET PO SCH ×3 (08:21→18:59)
[2018-01-09] MEDS: SODIUM BICARBONATE 650 MG TABLET PO SCH ×2 (08:21→21:29)
[2018-01-09] MEDS ORDERED: SODIUM CHLORIDE 0.9% 1,000 ML IV PRN ×2 (08:29→10:57)
[2018-01-09] MEDS ORDERED: diphenhydrAMINE CAP 25 MG CAPSULE PO PRN (08:29)
[2018-01-09] MEDS ORDERED: DARBEPOETIN ALFA 40 MCG/ML VIAL SUBCUT ONE (09:00)
[2018-01-09] MEDS: CALCIUM ACETATE 667 MG CAPSULE PO SCH ×2 (13:23→18:59)
[2018-01-09] MEDS: SODIUM HYPOCHLORITE 0.25% IRRIG 473 ML BOTTLE TOP SCH (13:25)
[2018-01-09 18:03] LABS: Hematocrit 29.8 VOL% (42.0-52.0); Hemoglobin 9.9 GM/DL (14.0-18.0)
[2018-01-10] MEDS: cefTRIAXone 1,000 MG in SYRINGE 1 EACH IV SCH (01:23)
[2018-01-10 07:40] VITALS: BP 127/65
[2018-01-10] MEDS: INSULIN LISPRO 100 UNIT/ML SUBCUT SCH (07:47)
[2018-01-10] MEDS: CALCIUM (CARBONATE) 500 MG TABLET PO SCH (08:10)
[2018-01-10] MEDS: CALCIUM ACETATE 667 MG CAPSULE PO SCH (08:10)
[2018-01-10] MEDS: SODIUM BICARBONATE 650 MG TABLET PO SCH (08:10)
[2018-01-10] MEDS: CALCIUM (CARBONATE)/VITAMIN D 600 MG-400 UNIT TABLET PO SCH (08:11)
[2018-01-10] MEDS: PANTOPRAZOLE 40 MG TABLET PO SCH (08:11)
[2018-01-10] MEDS: CARVEDILOL 25 MG TABLET PO SCH (08:11)
[2018-01-10] MEDS: SODIUM HYPOCHLORITE 0.25% IRRIG 473 ML BOTTLE TOP SCH (08:11)
[2018-01-10] MEDS ORDERED: AZITHROMYCIN 250 MG TABLET PO SCH (09:00)
== END 2018-01-10 10:48 | disposition home or self-care (01) | DRG 194 ==
LOC: SUATTDRO 21:50 → N.TELES 21:50
PROVIDERS: ADMIT Internal Medicine